=== PATIENT | female | born 1940 | race Caucasian/White ===

== ENCOUNTER → 2016-06-09 | Outpatient (REF) | LOC: ZLAB.WCH 10:39 | DX: Z01.89 Encounter for other specified special examinations (principal) ==

== ENCOUNTER → 2016-08-21 | Outpatient (CLI) | payer MEDICARE, BC | LOC: MC.RAD 08:16 | DX: Z12.31 Encounter for screening mammogram for malignant neoplasm of breast (principal); N64.89 Other specified disorders of breast ==

== ENCOUNTER → 2016-08-24 | Outpatient (CLI) | payer MEDICARE, BC | LOC: MC.RAD 10:11 | DX: Z12.39 Encounter for other screening for malignant neoplasm of breast (principal) ==

== ENCOUNTER → 2016-12-06 | Outpatient (REF) ==
[2016-12-06 10:44] LABS: TOTAL IRON BINDING CAPACITY 321 ug/dL (265-497)
[2016-12-06 11:11] LABS: FERRITIN 82 ng/mL (11-264)
== END ==
LOC: ZLAB.WCH 10:17
PROVIDERS: Internal Medicine
DX: Z02.89 Encounter for other administrative examinations (principal)

== ENCOUNTER → 2017-09-19 | Outpatient (CLI) | payer MEDICARE, BC | LOC: MC.RAD 07:14 | DX: Z12.31 Encounter for screening mammogram for malignant neoplasm of breast (principal) ==

== ENCOUNTER → 2017-12-25 | Outpatient (REF) ==
[2017-12-25 16:38] LABS: IRON,SERUM 98 ug/dL (35-150)
[2017-12-25 16:48] LABS: TOTAL IRON BINDING CAPACITY 305 ug/dL (265-497)
[2017-12-25 17:15] LABS: FERRITIN 93 ng/mL (11-264)
== END ==
LOC: ZLAB.WCH 15:49
PROVIDERS: Internal Medicine
DX: Z01.89 Encounter for other specified special examinations (principal)

== ENCOUNTER → 2018-09-26 | Outpatient (CLI) | payer MEDICARE, BC | LOC: MC.RAD 07:30 | DX: Z12.31 Encounter for screening mammogram for malignant neoplasm of breast (principal) ==

== ENCOUNTER → 2019-09-30 | Outpatient (CLI) | payer MEDICARE, BC | LOC: MC.RAD 16:23 | DX: Z12.31 Encounter for screening mammogram for malignant neoplasm of breast (principal) ==

== ENCOUNTER 2019-12-24 08:01 | Inpatient (IN) | payer MEDICARE, BC ==
[~2019-12-24] VITALS: Ht 162.6 cm; Wt 59.4 kg
[2019-12-24 09:15] LABS: HEMATOCRIT 40.4 % (37.0-47.0); HEMOGLOBIN 13.6 g/dl (12.5-16.0); MEAN CELL VOLUME 96 fl (80.0-100.0); MEAN CORPUSCULAR HEMOGLOBIN 32 pg (27.0-31.0); MEAN CORPUSCULAR HGB CONC 34 g/dl (33.0-37.0); MEAN PLATELET VOLUME 8.8 fl (7.4-10.4); PLATELET COUNT 131 K/mm3 (130-400); REDCELL DISTRIBUTION WIDTH-CV 11.8 % (11.5-14.5)
[2019-12-24 09:23] LABS: INR 1.1 (0.8-3.0); PROTHROMBIN TIME 12.1 SECONDS (9.7-12.8)
[2019-12-24 09:25] LABS: CREATININE, serum 0.8 (0.52-1.25); POTASSIUM 3.4 mmol/L (3.4-5.0)
[2019-12-24 09:52] VITALS: BP 133/88; PULSE 86; TEMP 98.2
[2019-12-24] MEDS ORDERED: LIPITOR 40MG TA40 MG PO (09:55)
[2019-12-24] MEDS ORDERED: MAXZIDE-25MG TA1 TAB PO (09:56)
[2019-12-24] MEDS ORDERED: ELIQUIS 5MG PO (09:57)
[2019-12-24] MEDS ORDERED: SYNTHROID0.112 MG/T PO (09:57)
[2019-12-24] MEDS ORDERED: LOPRESSOR 225 MG/TAB PO (09:58)
[2019-12-24] MEDS ORDERED: CENTRUM SILVER1 CTB PO (09:58)
[2019-12-24] MEDS ORDERED: CITRACAL + D CA1 TAB PO (09:59)
[2019-12-24] MEDS ORDERED: OMEGA-3 1000 MG1 CAP PO (09:59)
[2019-12-24] MEDS ORDERED: NATURAL FLAX1000 MG PO (10:00)
--- NOTE | 2019-12-24 10:15 | NUR ---
Pt to procedure.
[2019-12-24 10:23] VITALS: BP 134/77; PULSE 86
--- NOTE | 2019-12-24 10:25 | NUR ---
SEE MERGE FOR ALL MEDICATION ADMINISTRATION TIMES, INTRA AND POST SEDATION ASSESSMENTS
[2019-12-24 12:09] VITALS: BP 127/55; PULSE 91; TEMP 97.8
[2019-12-24 16:31] VITALS: BP 94/58; PULSE 67; TEMP 97.4
[2019-12-24 19:22] VITALS: BP 127/62; PULSE 75; TEMP 98
--- NOTE | 2019-12-24 20:30 | NUR ---
Patient resting in bed. Assessment complete. Lungs clear. Heart sounds normal. Bowels active x4. Pulses present throughout. No edema noted. INT left AC flushed without complications. Reports 2/10 shoulder and back pain. Applied lidocaine patch at this time. Will remove in medical aides teacher hours. Denies other needs at this time. Call light in reach.
--- NOTE | 2019-12-24 22:13 | NUR ---
Reports 5/10 back and left shoulder pain. Given PRN tylenol. INT left AC leaking. Dressing changed. Flushed well and blood returned. Denies other needs at this time. Call light in reach.
[2019-12-24 23:54] VITALS: BP 112/55; PULSE 62; TEMP 97.5
--- NOTE | 2019-12-25 00:33 | NUR ---
Resting in bed. Denies needs. Call light in reach.
--- NOTE | 2019-12-25 02:37 | NUR ---
Resting in bed. Denies needs. Call light in reach.
[2019-12-25 04:03] VITALS: BP 115/54; PULSE 70; TEMP 98.4
--- NOTE | 2019-12-25 06:01 | NUR ---
Patient required x1 dose of tylenol for pain control throughout night. Otherwise uneventful night. Resting in bed this AM. Call light in reach.
--- NOTE | 2019-12-25 06:48 | NUR ---
Report given to YESSICA Lafleur
[2019-12-25 07:12] LABS: BASO % 0.4 % (0.0-2.0); EOS # 0.1 (0.0-0.7); EOS % 2.4 % (0-4.0); GRAN # 3.4 (1.4-6.5); GRAN % 74.9 % (42.2-75.2); HEMATOCRIT 34.2 % (37.0-47.0); HEMOGLOBIN 11.8 g/dl (12.5-16.0); LYMPH # 0.7 (1.2-3.4); LYMPH % 15.7 % (20.0-51.0); MEAN CELL VOLUME 98 fl (80.0-100.0); MEAN CORPUSCULAR HEMOGLOBIN 34 pg (27.0-31.0); MEAN CORPUSCULAR HGB CONC 35 g/dl (33.0-37.0); MEAN PLATELET VOLUME 9.4 fl (7.4-10.4); MONO # 0.3 (0.1-0.6); MONO % 6.4 % (1.7-9.3); PLATELET COUNT 117 K/mm3 (130-400); REDCELL DISTRIBUTION WIDTH-CV 11.9 % (11.5-14.5)
[2019-12-25 07:26] LABS: CALCIUM 8.4 mg/dL (8.4-10.2); CREATININE, serum 0.71 (0.52-1.25); MAGNESIUM 1.8 mg/dL (1.6-2.3); POTASSIUM 3.3 mmol/L (3.4-5.0)
--- NOTE | 2019-12-25 08:16 | NUR ---
RECEIVED REPORT FROM JAMIE, PATIENT WAS UP TO RESTROOM AND THEN SITTING ON WINDOW BENCH. IS ALERT AND ORIENTED. SLING IS IN PLACE. DRESSING TO LEFT SHOULDER REMAINS CLEAN, DRY AND INTACT. CALL LIGHT IS WITHIN REACH.
[2019-12-25 08:33] VITALS: BP 125/72; PULSE 66; TEMP 98.3
[2019-12-25 12:51] VITALS: BP 134/74; PULSE 62; TEMP 97.7
--- NOTE | 2019-12-25 16:25 | NUR ---
Key Cutter met with the patient to complete initial intake. The patient lives in [place] with her , Kaden. The patient denies DME use and is independent with ADLs. The patient's PCP is Dr. Cross and patient receives medications from [facility] with no difficulties. The patient does not have advanced directives in the EMR but states they are complete and designate Kaden. The patient plans to return home at discharge. Kaden will provide transportation. There are no additional needs at this time.
[2019-12-25 17:40] VITALS: BP 132/68; PULSE 69; TEMP 98
--- NOTE | 2019-12-25 19:37 | NUR ---
RECEIVED TIME FOR PATIENTS CARDIOVERSION IN THE MORNING FROM [facility] IN HUMAN RESOURCE ADVISER. PATIENT IS TO GO FOR PROCEDURE AT 0730. SHE HAS BEEN INFORMED OF THIS AND CONSENT OBTAINED. PATIENT HAS ALSO BEEN NOTIFIED THAT SHE WILL BE NPO AFTER MIDNIGHT. SHE VERBALIZED UNDERSTANDING OF THE PROCEDURE SHE HAS HAD ONE LAST FALL.
--- NOTE | 2019-12-25 19:41 | NUR ---
REPORT GIVEN TO ONCOMING SHIFT.
[2019-12-25 19:46] VITALS: BP 131/65; PULSE 67; TEMP 98.2
--- NOTE | 2019-12-25 20:00 | NUR ---
Assessment complete at this time. Patient is independent in the room. She complains of pain, primarily in her sciatic area. 650 mg Tylenol administered for this. Left chest pacemaker insertion site's dressing is CDI with some bruising under the arm. Left arm sling is in place. Will continue to monitor.
[2019-12-25 23:36] VITALS: BP 135/57; PULSE 61; TEMP 97.7
[2019-12-26 03:08] VITALS: BP 138/60; PULSE 63; TEMP 97.8
[2019-12-26 07:28] LABS: BASO % 0.5 % (0.0-2.0); EOS # 0.1 (0.0-0.7); GRAN # 3.2 (1.4-6.5); GRAN % 73.5 % (42.2-75.2); HEMOGLOBIN 12.4 g/dl (12.5-16.0); LYMPH # 0.7 (1.2-3.4); LYMPH % 16.4 % (20.0-51.0); MEAN CELL VOLUME 96 fl (80.0-100.0); MEAN CORPUSCULAR HEMOGLOBIN 34 pg (27.0-31.0); MEAN CORPUSCULAR HGB CONC 35 g/dl (33.0-37.0); MEAN PLATELET VOLUME 10.1 fl (7.4-10.4); MONO # 0.3 (0.1-0.6); MONO % 6.4 % (1.7-9.3); PLATELET COUNT 101 K/mm3 (130-400); REDCELL DISTRIBUTION WIDTH-CV 11.7 % (11.5-14.5)
[2019-12-26 07:29] LABS: HEMATOCRIT 35.5 % (37.0-47.0)
[2019-12-26 07:50] LABS: CALCIUM 8.5 mg/dL (8.4-10.2); CREATININE, serum 0.59 (0.52-1.25); POTASSIUM 3.2 mmol/L (3.4-5.0)
[2019-12-26 07:51] VITALS: BP 142/62; PULSE 60; TEMP 97.7
--- NOTE | 2019-12-26 10:57 | NUR ---
Patient is alert and oriented. mild pain on pacemaker incision site, dressing clean, intact, no redness. patient have no concern or question at this time.
[2019-12-26] MEDS ORDERED: CEPHALEXIN500 M1 PO (11:59)
[2019-12-26] MEDS ORDERED: BETAPACE 80MG80 MG PO (11:59)
[2019-12-26 12:49] VITALS: BP 143/65; PULSE 60; TEMP 97.9
--- NOTE | 2019-12-26 13:33 | NUR ---
Primary nurse was assisted with [phone] [facility] ADN student Chyna Dailey.
--- NOTE | 2019-12-26 17:19 | NUR ---
Patient is alert and oriented. RN provided education on post pacemaker insertion site care and restriction. Followup appointment discussed with new medication Sotalol and Cephalexin. INT discontinued. patient discharge home with . No further question or concern from patient at this time.
== END 2019-12-26 14:15 | disposition home or self-care (01) | DRG 244 ==
LOC: COL.CAR → MEDICAL 12:02
PROVIDERS: ADMIT Internal Medicine Cardiovascular Disease
PROC: 0JH606Z Insertion of Pacemaker, Dual Chamber into Chest Subcutaneous Tissue and Fascia, Open Approach (ICD-10-PCS; principal; 2019-12-24)
PROC: 02HK3JZ Insertion of Pacemaker Lead into Right Ventricle, Percutaneous Approach (ICD-10-PCS; 2019-12-24)
PROC: 02H63JZ Insertion of Pacemaker Lead into Right Atrium, Percutaneous Approach (ICD-10-PCS; 2019-12-24)
DX: I49.5 Sick sinus syndrome (principal); I48.0 Paroxysmal atrial fibrillation; I48.91 Unspecified atrial fibrillation
CPT/HCPCS: C1785; C1894; C1898; J0690; J1200; J2250; J3010; J7030

== ENCOUNTER → 2020-02-05 | Outpatient (CLI) | payer MEDICARE, BC ==
--- NOTE | 2020-02-02 08:25 | NUR ---
ASKED TO BE HERE AT 0830. NO METAL ON HER PERSON. [place] ARE FINE. WILL BRING HER.
[~2020-02-05] MED LIST: BETAPACE 80MG80 MG PO; CENTRUM SILVER1 CTB PO; CEPHALEXIN500 M1 PO; CITRACAL + D CA1 TAB PO; ELIQUIS 5MG PO; LIPITOR 40MG TA40 MG PO; LOPRESSOR 225 MG/TAB PO; MAXZIDE-25MG TA1 TAB PO; NATURAL FLAX1000 MG PO; OMEGA-3 1000 MG1 CAP PO; SYNTHROID0.112 MG/T PO
== END ==
LOC: COL.RAD 01-28 09:45
DX: M46.1 Sacroiliitis, not elsewhere classified (principal); M47.816 Spondylosis without myelopathy or radiculopathy, lumbar region; M71.38 Other bursal cyst, other site; M48.061 Spinal stenosis, lumbar region without neurogenic claudication

== ENCOUNTER → 2020-08-11 | Outpatient (CLI) | payer MEDICARE, BC | LOC: COL.RAD 07:39 | DX: M48.061 Spinal stenosis, lumbar region without neurogenic claudication (principal); M51.36 Other intervertebral disc degeneration, lumbar region; M43.16 Spondylolisthesis, lumbar region; M47.816 Spondylosis without myelopathy or radiculopathy, lumbar region; M71.38 Other bursal cyst, other site; D75.89 Other specified diseases of blood and blood-forming organs ==

== ENCOUNTER → 2020-09-30 | Outpatient (CLI) | payer MEDICARE, BC | LOC: MC.RAD 09:04 | DX: Z12.31 Encounter for screening mammogram for malignant neoplasm of breast (principal) ==

== ENCOUNTER → 2021-01-17 | Outpatient (CLI) | payer MEDICARE, BC | LOC: COL.RAD 07:34 | DX: R42 Dizziness and giddiness (principal) | CPT/HCPCS: A9585 ==

== ENCOUNTER 2021-08-17 10:32 | Inpatient (IN) | payer MEDICARE, BC ==
[~2021-08-17] VITALS: Ht 157.5 cm; Wt 50.0 kg
[2021-08-17] MEDS ORDERED: TYLENOL 325MG325 MG PO (12:49)
[2021-08-17] MEDS ORDERED: CORDARONE200 MG/TAB PO (12:49)
[2021-08-17] MEDS ORDERED: ZEBETA 5MG5 MG PO (12:50)
[2021-08-17] MEDS ORDERED: DULCOLAX STOOL100 MG PO (12:51)
[2021-08-17] MEDS ORDERED: HALLS9.1 MG PO (13:03)
[2021-08-17] MEDS ORDERED: TIROSINT112 MC1 PO (13:04)
[2021-08-17] MEDS ORDERED: ROXICODONE 55 MG/TAB (13:05)
[2021-08-17] MEDS ORDERED: LIPITOR 40MG TA40 MG PO (14:58)
[2021-08-17] MEDS ORDERED: CALCIUM WITH VIT D (15:00)
[2021-08-17] MEDS ORDERED: VITAMIN D31000 I1 PO (15:01)
[2021-08-17] MEDS ORDERED: XARELTO20 MG PO (15:02)
[2021-08-17 15:22] VITALS: BP 128/85; PULSE 95; TEMP 98.2
--- NOTE | 2021-08-17 15:45 | NUR ---
Pt. arrived to IPR unit at approx 1530 via wheelchair. She was escorted by transportation staff member from [facility]. She is a/o x 4. She required assist x 1 person to transfer from wheelchair to bed. She denies pain or discomfort at this time. [place] collar is on. Admission assessments completed. Orientation provided to room, call light, meals, visiting policy. She had no further questions. Call light is within her reach
--- NOTE | 2021-08-17 17:17 | NUR ---
Pt reporting that dsg to neck incision has been changed for 3 days. [place] collar and gauze dressing removed with Dr. Diaz for skin assessment. Neck incision is approx 1 inch long. Steristrips intact to neck incision. 4x4 gauze placed over steristrips and then covered with hypofix tape.
[2021-08-17 17:30] VITALS: BP 165/81; PULSE 74; TEMP 98.7
--- NOTE | 2021-08-17 19:15 | NUR ---
RECEIVED CHANGE OF SHIFT REPORT FROM DAY SHIFT RN. PATIENT SITTING AT SIDE OF BED WITH EXIT ALARM ON AND CALL LIGHT WITHIN REACH. DENIES ANY NEEDS AT TIME OF REPORT.
[2021-08-18 05:18] VITALS: BP 137/70; PULSE 70; TEMP 98.4
--- NOTE | 2021-08-18 07:07 | NUR ---
Pt. resting supine in bed; watching television. [place] collar is on. She denies pain or discomfort. Call light is within her reach
--- NOTE | 2021-08-18 07:15 | NUR ---
CHANGE OF SHIFT REPORT GIVEN TO DAY SHIFT RNCAMPBELL.
--- NOTE | 2021-08-18 09:04 | NUR ---
Pt. currently up in w/c working with PT/OT. Therapist is wanting to clarify when pt. can shower. Sponge bath was given this morning. Called surgeon's office to clarify. Shan Joseph RN, okay to shower 7 days after surgery; replace pads of [place] Collar if they get wet
--- NOTE | 2021-08-18 11:51 | NUR ---
SW met with the patient to complete intake, as the patient is new to [facility]. The patient lives in [place] with her , Kaden (ph#[phone]). She reports needing some assistance with ADLs before hospitalization and has a cane and walker. She states that her was helping her with getting on the toliet and with bathing. She has never had home health services. The patient's PCP is Dr. Maximus Cross and she receives her medications from [facility]. She reports no difficulties obaining her meds. The patient does not have a DPOA-HC in EMR, but she states that she does have one completed and that she designated her . The patient states that therapy has been hard today, with it being her first day, but "no pain, no gain." SW to continue to follow.
--- NOTE | 2021-08-18 13:33 | NUR ---
Several visit attempts; Physical Therapist present, Supervisor Finishing Room left patient a card letting her know of the availability of Spiritual Care and offered her God's blessings.
--- NOTE | 2021-08-18 15:35 | NUR ---
Pt. resting in bed, HOB elevated approx 30 degrees. and friend are at bedside to visit. Pt. reports pain at 05/02. Denies further needs at this time. Call light is within her reach
[2021-08-18 17:19] VITALS: BP 156/77; PULSE 73; TEMP 98.5
--- NOTE | 2021-08-18 21:00 | NUR ---
PT RESTING IN BED. NO DISTRESS. ASPEN COLLAR IN PLACE. MOD 1 ASSIST TO BSC TO VOID. LEGS WEAK AND EASILY GIVE OUT. BACK TO BED. DENIES NEED FOR PAIN MED. CALL LIGHT IN REACH. BED ALARM SET.
[2021-08-19 05:31] VITALS: BP 174/72; PULSE 70; TEMP 98.9
--- NOTE | 2021-08-19 06:24 | NUR ---
PT HAS SLEPT WELL THIS NIGHT. NO CHANGES.
--- NOTE | 2021-08-19 09:30 | NUR ---
Pt doing well this morning. She was nervous about taking a shower, discussed procedure and pt appeared to be more calm about it. Now that pt has showered, she stated it wasn't too bad. Pt denies any needs
--- NOTE | 2021-08-19 12:48 | NUR ---
Pt continues to do well with little to no pain. Drsg to neck was changed. There were steristrips intact with dried blood to them, no active drainage or bleeding noted. New gauze and tape applied. Pt tolerated with no complaints. Pt resting a little prior to next therapy session.
[2021-08-19 17:18] VITALS: BP 126/89; PULSE 70; TEMP 98.6
[2021-08-20 05:34] VITALS: BP 139/72; PULSE 71; TEMP 98.2
--- NOTE | 2021-08-20 08:00 | NUR ---
Assessment complete. A&Ox3. Denies nausea/shortness of breath. VS remain stable. Rating pain 4/10 to neck-described as intermittent throbbing-tylenol given per dr graham. [place] collar on. Dressing to neck CDI gauze. Plan of care discussed for this shift to include meds/collar at all times/therapy/calling for questions/concerns. Verbalizes understanding/denies needs. Call light in reach. will monitor.
--- NOTE | 2021-08-20 11:57 | NUR ---
Assisted to bathroom-1 assist/walker/gait belt. Tolerated well. Voided without difficulty.
--- NOTE | 2021-08-20 16:18 | NUR ---
Pt up to bathroom at this time x1 assist/gait belt/walker. Very unsteady-legs gave out on way to toilet. Patient did not fall but buckled at the knees.
[2021-08-20 17:38] VITALS: BP 153/79; PULSE 72; TEMP 98.5
--- NOTE | 2021-08-20 18:03 | NUR ---
Patient had an uneventful day. Did state she feels worn out from therapy and is currently unsteady on her feet-knees buckle with ambulation. Received only tylenol for pain. Denied nausea/shortness of breath. VS remained stable. Denies current needs. Call light in reach. Will monitor.
--- NOTE | 2021-08-20 18:23 | NUR ---
Report to YESSICA Mansfield
--- NOTE | 2021-08-20 19:33 | NUR ---
PT RESTING IN BED. WATCHING TV. REPOSITIONED FOR COMFORT. ASPEN COLLAR IN PLACE. NO NEEDS ST THIS TIME. CALL LIGHT IN REACH. BED ALARM SET.
[2021-08-21 05:33] VITALS: BP 153/68; PULSE 82; TEMP 98.6
--- NOTE | 2021-08-21 07:00 | NUR ---
assisted up to bathroom by CHIEF WARDEN, CHIEF WARDEN states when returning from bathroom her patient's legs became very weak and she started to bend her knees but CHIEF WARDEN was able to keep her up and patient was able to continue to ambulate to the bed, patient states her legs just get very weak and feel like rubber,
--- NOTE | 2021-08-21 07:40 | NUR ---
sitting up in bed and has had breakfast, full assessment completed, see interventions for further info, states she has not had a bowel movement for a couple of days, offered miralax but is afraid to take it as it worked too well, will consider it and let this nurse know if she wants to take it
--- NOTE | 2021-08-21 09:40 | NUR ---
called requesting to get up to bathroom, as she was being assited up to bedside commode had large loose incontinent bowel movement, care provided and then assisted back to bed,
--- NOTE | 2021-08-21 12:30 | NUR ---
having lunch, in to visit
--- NOTE | 2021-08-21 13:03 | NUR ---
assisted up to bedside commode, had asked to take a walk but had difficulty standing from commode with assistance, will wait and attempt a walk later, assited back to bed per her request
--- NOTE | 2021-08-21 14:10 | NUR ---
resting in bed with TV on
--- NOTE | 2021-08-21 15:52 | NUR ---
assisted up to bedside commode, then was able to ambulate approx 25 feet, then sat and rested and then ambulated another 25 feet back to her room and will sit up in WC for a while
[2021-08-21 17:59] VITALS: BP 174/80; PULSE 73; TEMP 98.6
--- NOTE | 2021-08-21 18:45 | NUR ---
shift report given to YESSICA Mansfield
--- NOTE | 2021-08-21 20:33 | NUR ---
CHANGED NECK DRSG. NO DRAINAGE OR REDNESS NOTED. ASPEN COLLAR BACK ON.
--- NOTE | 2021-08-21 21:00 | NUR ---
ASSISTED PT TO BSC. LEGS ARE VERY WEAK. NEEDED MAX ASSIST TO TRANSFER AND HYGIENE. BACK TO BED. ASPEN COLLAR IN PLACE.
--- NOTE | 2021-08-22 02:18 | NUR ---
1 MOD ASSIST TO BSC. LEGS WEAK. VOIDED. 2:1 BACK TO BED. CALL LIGHT IN REACH. BED ALARM SET.
[2021-08-22 05:38] VITALS: BP 148/75; PULSE 76; TEMP 98.5
--- NOTE | 2021-08-22 08:01 | NUR ---
Shift report received from machinist 2nd shift RN. Pt. sitting up in bed. She denies pain or discomfort. She reports not sleeping well during the night. She denies further needs at this time. Call light is within her reach
[2021-08-22 11:18] LABS: HEMATOCRIT 40.7 % (37.0-47.0); HEMOGLOBIN 13.5 g/dl (12.5-16.0); MEAN CELL VOLUME 82 fl (80.0-100.0); MEAN CORPUSCULAR HEMOGLOBIN 27 pg (27-31); MEAN CORPUSCULAR HGB CONC 33 g/dl (33.0-37.0); MEAN PLATELET VOLUME 8.6 fl (7.4-10.4); PLATELET COUNT 392 K/mm3 (130-400); RED BLOOD COUNT 4.96 M/mm3 (4.10-5.30); REDCELL DISTRIBUTION WIDTH-CV 14.6 % (11.5-14.5)
[2021-08-22 11:26] LABS: CALCIUM 8.9 mg/dL (8.4-10.2); CREATININE, serum 0.79 mg/dL (0.57-1.11); POTASSIUM 4.2 mmol/L (3.5-4.5)
[2021-08-22 12:08] LABS: BAND 5 % (0-10); LYMPHOCYTE 3 % (20.0-51.0); NEUTROPHILS 88 % (42.0-75.2)
[2021-08-22 12:09] LABS: PLATELET ESTIMATE NORMAL (NORMAL); TOXIC GRANULATION PRESENT
--- NOTE | 2021-08-22 14:27 | NUR ---
TRINI met with the patient to follow up after the weekend. The patient was lying down, watching a baseball game. The patient states that the weekend went alright and she is doing well, just trying to get some rest. She had no concerns for SW.
--- NOTE | 2021-08-22 17:25 | NUR ---
Pt. assisted to bathroom using wheelchair, gait belt, and 2 person assist. Red area noted to sacral area. Area is approx 4cm long and does not nia. Not tender or painful per patient. Allevyn foam dressing placed for pressure relief. Skin is intact at this time
[2021-08-22 17:43] VITALS: BP 129/54; PULSE 74; TEMP 98.4
--- NOTE | 2021-08-22 19:58 | NUR ---
RECEIVED CHANGE OF SHIFT REPORT FROM DAY SHIFT RN. BED EXIT ALARM ON WITH CALL LIGHT WITHIN REACH.
[2021-08-23 05:38] VITALS: BP 116/67; PULSE 83; TEMP 98.9
--- NOTE | 2021-08-23 06:55 | NUR ---
CHANGE OF SHIFT REPORT GIVEN TO DAY SHIFT RNCAMPBELL.
--- NOTE | 2021-08-23 07:06 | NUR ---
Pt. resting supine in bed. HOB elevated approx 30 degrees. [place] collar on as ordered. Shift report received from maintenance technician 3rd shift RN. Call light is within her reach
--- NOTE | 2021-08-23 12:15 | NUR ---
Nurse to administer IV Rocephin. After flushing IV site right wrist with 5mL, site noted to be infiltrated. IV removed. New IV site established in left ac by charge nurse. 22g placed without difficulty and flushes well
--- NOTE | 2021-08-23 15:02 | NUR ---
Dressing change completed to anterior neck incision. Dry drainage noted on intact steristrips. No active drainage. Dry 2x2 gauze placed over steristrips and secured with hypofix tape. [place] collar secured around pt's neck. She denies pain or discomfort. Denies further needs. Call light is within her reach
--- NOTE | 2021-08-23 15:26 | NUR ---
Admission QIM scores were reviewed by the team. Code of 1 chosen for toilet hygiene was determined by team discussion to be the most usual performance for this patient during the assessment period. Code of 1 chosen for toileting transfers was determined by team discussion to be the most usual performance for this patient during the assessment period. Code of 2 chosen for lower body dressing was determined by team discussion to be the most usual performance for this patient during the assessment period. Code of 2 chosen for putting on/taking off footwear was determined by team discussion to be the most usual performance for this patient during the assessment period. Code of 3 chosen for sit to lying was determined by team discussion to be the most usual performance before interventions for this patient during the assessment period. Code of 3 for sit to stand was determined by team discussion to be the most usual performance for this patient during the assessment period. Code of 2 for chair/bed to chair transfers was determined by team discussion to be the most usual performance for this patient during the assessment period. Code of 88 chosen for walk 10 feet was determined by team discussion to be the most usual performance for this patient during the assessment period.--Alva Genao,
[2021-08-23 17:16] VITALS: BP 121/65; PULSE 77; TEMP 99.7
--- NOTE | 2021-08-23 19:15 | NUR ---
Skin check for skin to sacral area. Yesterday skin was noted to be red and non-blanchable. Allevyn dressing was applied for pressure relief. Sacral area is no longer red. Allevyn dressing reapplied for protection/pressure relief
--- NOTE | 2021-08-23 19:36 | NUR ---
RECEIVED CHANGE OF SHIFT REPORT FROM DAY SHIFT RN. PATIENT UP IN CHAIR DURING REPORT, REQUESTED TO HAVE SELF CHANGE INTO PAJAMAS, AND PUT BACK TO BED. REQUIRED MAX ASSIST X2, BLE VERY WEAK, NEEDING TO SIT DOWN FEW TIMES DURING ACTIVITY OF DRESSING AND TRANFERRING TO BED FROM CHAIR DUE TO BLE WEAKNESS. PATIENT WITH SOME SOA DURING ACTIVITY. WHEN IN BED, EXIT ALARM ON, CALL LIGHT WITHIN REACH. DENIES ANY OTHER NEEDS.
[2021-08-23 20:48] VITALS: BP 147/95; PULSE 88
[2021-08-23 21:15] VITALS: BP 104/55
--- NOTE | 2021-08-23 21:32 | NUR ---
AFTER TAKING HS MED, CALCIUM TAB (CUT IN HALF), PATIENT STARTED COUGHING PERSISTANTLY WITH DRY HEAVING. VS TAKEN, WITH OBSERVED OX SAT DOWN TO 88% ON ROOM AIR, OXYGEN APPLIED, CALLED HOSP PROVIDER REGARDING SITUATION, ORDERS GIVEN FOR X1 RT TREATMENT (RT CALLED), OXYGEN RUNNING INITIALLY AT 2 LPM BUT NOW SET AT 3 LPM DUE TO CONTINUED COUGHING AT THIS TIME. OBSERVED SPUTUM MOSTLY FROTHY WHITE NOW BUT AT ONE POINT WAS LIGHT SEGURA WITH X1 SMALL WHITE ORTIZ. PATIENT REPORTS SHE CAN FEEL TAB STUCK IN BACK OF THROAT.
--- NOTE | 2021-08-23 21:50 | NUR ---
OBSERVED OXYGEN SET AT 5 LPM AT THIS TIME. PATIENT RESTING QUIETLY IN BED IN HIGH FOWLERS POSITION RECOMMENDED BY RT AND PROVIDER. TOLERATED X3 SPRAYS OF PRN THROAT SPRAY.
--- NOTE | 2021-08-24 02:06 | NUR ---
PATIENT UP TO BSC, MAX ASST X2, FREQUENT VERBAL CUES TO LIFT BLE DURING TRANFER FROM BSC TO BED, GAIT NOTICABLE WEAK TRANSFER. PATIENT COUGHING INFREQUENTLY WHEN EYES CLOSED/RESTING, WITH COUGHING SLIGHT INCREASED WHEN AWAKE AND MOVING AND TALKING. COUGH NONPRODUCTIVE AND NO RETCHING OBSERVED. OXYGEN CONTINUES. AGREED TO 1 SPRAY OF THROAT SPRAY. NO OTHER NEEDS REPORTED.
[2021-08-24 03:33] VITALS: BP 102/44; PULSE 76; TEMP 99.6
[2021-08-24 06:10] LABS: MEAN CELL VOLUME 81 fl (80.0-100.0); MEAN CORPUSCULAR HGB CONC 33 g/dl (33.0-37.0); PLATELET COUNT 323 K/mm3 (130-400); RED BLOOD COUNT 4.11 M/mm3 (4.10-5.30); REDCELL DISTRIBUTION WIDTH-CV 14.6 % (11.5-14.5)
[2021-08-24 06:12] LABS: HEMATOCRIT 33.3 % (37.0-47.0); HEMOGLOBIN 11.1 g/dl (12.5-16.0); MEAN CORPUSCULAR HEMOGLOBIN 27 pg (27-31)
[2021-08-24 06:38] LABS: CREATININE, serum 0.81 mg/dL (0.57-1.11); POTASSIUM 4.1 mmol/L (3.5-4.5)
[2021-08-24 06:57] LABS: BAND 5 % (0-10); EOSINOPHIL 2 % (0-4); LYMPHOCYTE 5 % (20.0-51.0); MYELOCYTE 1 % (0-0); NEUTROPHILS 87 % (42.0-75.2); PLATELET ESTIMATE NORMAL (NORMAL)
--- NOTE | 2021-08-24 07:13 | NUR ---
CHANGE OF SHIFT REPORT GIVEN TO DAY SHIFT RNABE.
--- NOTE | 2021-08-24 10:25 | NUR ---
Assessment completed, alert/oriented, vital signs stable, reports some body aches from coughing overnight s/p episode of choking/aspirating on a medication, follow up CXR did not show signs of significant aspiration, she was originally on some supplemental O2 but we have weened her off and sats are WNL on room air, ST ordered for swallow eval, we crushed morning meds and she seems to have tolerated well without signs of aspiration, discussed plan of care with , patient is still very weak in her BLE, [place] collar in place at all times, dressing to neck incision due to be changed on 08/26/21, patient denies other needs at this time
--- NOTE | 2021-08-24 14:02 | NUR ---
TRINI met with the patient's , Kaden, to present and review the IPR Team Conference Note. The team plans to re-evaluate the patient next Sunday. There is no discharge date set at this time. Kaden was in agreement to the plan. SW to continue to follow.
[2021-08-24 16:56] VITALS: BP 111/58; PULSE 72; TEMP 98.4
--- NOTE | 2021-08-24 20:21 | NUR ---
PT HAS IMPULSIVELY GOTTEN OUT OF RECLINER SEVERAL TIMES. CHAIR ALARM SOUNDING. PT AMBULATED TO SURGICAL NURSES DESK ANS ESCORTED BACK TO ROOM. PT RELATES IS PICKING HIM UP AND THE ENTRANCE. REVIEWED PLAN OF CARE. PT ABLE TO IDENTIFY HE IS AT [facility].
--- NOTE | 2021-08-24 20:30 | NUR ---
PT SITTING UP IN BED. TAKES 1 PILL CRUSHED WITH PUDDING AND WAS ABLE TO TAKE THE OTHERS WELL WITH H20. ASPEN COLLAR IN PLACE. DRSG TO NECK CDI. CALL LIGHT IN REACH. BED ALARM SET. NO NEEDS AT THIS TIME.
--- NOTE | 2021-08-25 02:12 | NUR ---
PT RESTING WELL. NO RESP DISTRESS. HAS OCCASIONAL NONPRODUCTIVE COUGH.
[2021-08-25 06:06] VITALS: BP 137/68; PULSE 85; TEMP 98.7
--- NOTE | 2021-08-25 06:14 | NUR ---
PT HAD UNEVENTFUL NIGHT.
--- NOTE | 2021-08-25 10:50 | NUR ---
DRESSING TO PT'S NECK CHANGED AFTER PT HAS SHOWER WITH OCCUPATIONAL THERAPY. STERI STRIPS INTACT TO INCISION. GAUZE ET HYPAFIX TAPLE APPLIED. MEPILEX DRESSING ON PT'S COCCYX ALSO CHANGED, SKIN IS NORMAL ET INTACT.
[2021-08-25 17:57] VITALS: BP 128/81; PULSE 73; TEMP 97.9
--- NOTE | 2021-08-25 17:58 | NUR ---
PT SITTING UP IN RECLINER CHAIR. PT'S IN VISITING WITH HER. PT HAS WORKED WITH THERAPY TODAY, BEEN UP TO THE BR WITH 2 ASSIST, WALKER ET A GAIT BELT SEVERAL TIMES TO URINATE. ASPEN COLLAR ET GAUZE DRESSING IN PLACE TO PT'S NECK. PT HAS DENIED NEED FOR PAIN MEDICATION WHEN OFFERED, STATES THAT BACK PAIN IS MILD.
--- NOTE | 2021-08-25 19:40 | NUR ---
PT RESTING IN BED. PT C/O SACRAL DISCOMFORT FROM DITTING IN RECLINER. REDNESS NOTED TO SACRAL AREA APPROX 3CM AREA. PLACED MEPILEX TO THIS ARE. ALREADY HAS MEPILEX TO UPPER COCCYX INTACT. HERE. VERY SUPPORTIVE. CALL LIGHT IN REACH. BED ALARM SET.
--- NOTE | 2021-08-25 19:45 | NUR ---
PT RELATES SHE STILL OCCASIONAL NONPRODUCTIVE COUGH. NO RESP DISTRESS NOTED.
[2021-08-26 05:37] VITALS: BP 137/97; PULSE 70; TEMP 97.7
[2021-08-26 05:59] LABS: BASO # 0.1 K/mm3 (0.0-0.2); BASO % 0.6 % (0.0-2.0); EOS # 0.3 K/mm3 (0.0-0.7); EOS % 2.4 % (0.0-4.0); GRAN # 8.7 K/mm3 (1.4-6.5); GRAN % 84.7 % (42.2-75.2); HEMOGLOBIN 10.7 g/dl (12.5-16.0); LYMPH # 0.7 K/mm3 (1.2-3.4); LYMPH % 6.5 % (20.0-51.0); MEAN CELL VOLUME 81 fl (80.0-100.0); MEAN CORPUSCULAR HEMOGLOBIN 27 pg (27-31); MEAN CORPUSCULAR HGB CONC 33 g/dl (33.0-37.0); MEAN PLATELET VOLUME 8.3 fl (7.4-10.4); MONO # 0.5 K/mm3 (0.1-0.6); MONO % 5.1 % (1.7-9.3); PLATELET COUNT 343 K/mm3 (130-400); RED BLOOD COUNT 3.98 M/mm3 (4.10-5.30); REDCELL DISTRIBUTION WIDTH-CV 14.6 % (11.5-14.5)
[2021-08-26 06:00] LABS: HEMATOCRIT 32.2 % (37.0-47.0)
--- NOTE | 2021-08-26 06:07 | NUR ---
PT INT NEEDLE LEAKING. WILL NOT FLUSH. DC'D AT THIS TIME.
[2021-08-26 06:28] LABS: CALCIUM 7.8 mg/dL (8.4-10.2); CREATININE, serum 0.68 mg/dL (0.57-1.11); POTASSIUM 3.8 mmol/L (3.5-4.5)
--- NOTE | 2021-08-26 08:00 | NUR ---
Patient laying in bed resting, easily awakened with verbal command. A&Ox4. VSS. Cervical collar on neck. Denies pain and discomfort. No IV access. Independent with feeds and repositioning in bed. Call light within reach. Bed alarm on
--- NOTE | 2021-08-26 10:53 | NUR ---
TRINI met with the patient to follow up before the weekend. The patient states that she is doing alright. She states that therapy this morning has gone okay. She states that her legs are wobbly. She had no concerns for SW at this time.
--- NOTE | 2021-08-26 17:12 | NUR ---
Nurse assisted the patient with walker and gait belt to the bathroom and then to the recliner. at the bedside. Patient A&Ox4. VSS. IV CDI. Denies pain and discomfort. Cervical collar on and tolerating well. Call light within reach
[2021-08-26 17:22] VITALS: BP 144/77; PULSE 79; TEMP 98.6
--- NOTE | 2021-08-27 06:01 | NUR ---
no pain reported tonight, however, had quite a bit of weakness in BLE, able to ambulate to restroom with assist x1 using GB and walker prior to bed time, but had to transfer back to bed with WC after difficulty standing up from toilet, used BSC rest of the noc, without difficulty. colace given @HS for no stool since 08/22
[2021-08-27 06:07] VITALS: BP 140/71; PULSE 70; TEMP 98
--- NOTE | 2021-08-27 07:00 | NUR ---
Shift report received from shift nurse manager RN. Pt. resting in bed. HOB elevated approx 30 degrees. Call light is within her reach
--- NOTE | 2021-08-27 11:52 | NUR ---
Dressing change completed to anterior neck incision. Steristrips to incision are CDI. Dried drainage noted on steristrips, no active drainage. 2x2 and hypofix tape applied over steristrips. Pt. continues to wear the [place] collar. is in the room. They deny further needs at this time. Call light is within her reach
--- NOTE | 2021-08-27 15:00 | NUR ---
Pt. requesting to "get up and walk a few steps". Pt. ambulated approx 20 feet using gait belt and fww. Nurse provided CGA while HOMELAND SECURITY PROGRAM SPECIALIST followed closely with wheelchair. Pt. assisted to recliner chair at her request. Pressure relief cushions placed in recliner chair for comfort. Pt. stated that recliner is "really hard". She denies pain or discomfort at this time. Call light is within her reach
[2021-08-27 17:13] VITALS: BP 114/68; PULSE 71; TEMP 97.6
--- NOTE | 2021-08-27 18:17 | NUR ---
Pt. sitting in recliner on egg-crate cushion. Pt. c/o soreness to sacral area. Allevyn dsg. intact but removed by this insurance writer to inspect skin below the dressings. Redness noticed between upper buttocks. Skin is intact. Blanches. New Allevyn dressing replaced over sacral area. Pt. cushion replaced with pillow for now as pt. would like to like to wait for her to arrive. Pt. will call if discomfort returns. Call light is within her reach
[2021-08-28 05:23] VITALS: BP 148/84; PULSE 83; TEMP 97.2
--- NOTE | 2021-08-28 06:59 | NUR ---
Shift report given from shift boss RN. Pt. resting in bed. [place] collar on. Call light is within her reach
--- NOTE | 2021-08-28 09:54 | NUR ---
Pt. assisted back to bed using min A, gait belt, fww after sitting in recliner for breakfast. She denies pain or discomfort. Denies further needs at this time. Call light is within her reach
--- NOTE | 2021-08-28 11:23 | NUR ---
Pt. assisted to bathroom using gait belt & fww. CGA provided by nurse & COMMUNICATION CONSULTANT. Pt. ambulated approx 30ft after toileting. Pt. now sitting up in recliner. [place] collar is on. Allevyn dsg to coccyx is CDI. She denies pain but reports minimal discomfort to coccyx today. She denies further needs at this time. Call light is within her reach
[2021-08-28 17:15] VITALS: BP 121/76; PULSE 79; TEMP 97.7
--- NOTE | 2021-08-28 18:21 | NUR ---
Pt. assisted to wheelchair then to toilet; required assist x 1 with gait belt. Pt. feels like her feet are numb. CMS WNL both feet. No edema. Pulses 2+ bilaterally.
--- NOTE | 2021-08-28 19:41 | NUR ---
RECEIVED CHANGE OF SHIFT REPORT FROM DAY SHIFT RN. UP IN CHAIR WITH EXIT ALARM ON AND CALL LIGHT WITHIN REACH.
--- NOTE | 2021-08-29 05:44 | NUR ---
OBSERVED PATIENT NEEDING FREQUENT REMINDER WITH PIVOT TRANSFERS REGARDING POSTURE AND USE OF WALKER. REMINDED PATIENT TO NOT LEAN BACKWARDS WHEN USING WALKER DURING PIVOT TRANSFERS. PATIENT VERBALIZED UNDERSTANDING.
[2021-08-29 05:51] VITALS: BP 148/66; PULSE 70; TEMP 97.6
--- NOTE | 2021-08-29 07:02 | NUR ---
CHANGE OF SHIFT REPORT GIVEN TO DAY SHIFT RNANASTACIA.
--- NOTE | 2021-08-29 08:31 | NUR ---
AM MEDS GIVEN ORDERED. PT ATE 100% OF BREAKFAST. UP TO BR VOIDED AND RETURNED TO RECLINER. PT WORKING WITH OT AT THIS TIME. PT AMBULATES WITH SLOW STEADY GAIT.
--- NOTE | 2021-08-29 09:22 | NUR ---
DRESSING CHANGE COMPLETE, REPLACED GAUZE AND [place]IPORE TAPE OVER INCISION.
--- NOTE | 2021-08-29 16:09 | NUR ---
nuclear plant construction worker checked in with patient. Patients Kaden present at bedside. Introduced myself. No concerns or needs addressed at this time.
[2021-08-29 17:30] VITALS: BP 125/74; PULSE 76; TEMP 97.2
--- NOTE | 2021-08-29 19:07 | NUR ---
RECEIVED CHANGE OF SHIFT REPORT FROM DAY SHIFT RN.
--- NOTE | 2021-08-29 19:19 | NUR ---
PATIENT UP IN CHAIR, EXIT ALARM ON, CALL LIGHT WITHIN REACH. DENIES ANY NEEDS AT THIS TIME.
[2021-08-30 06:06] VITALS: BP 112/62; PULSE 77; TEMP 97.3
--- NOTE | 2021-08-30 06:20 | NUR ---
DURING TRANSFER WITH GAIT BELT ON/PATIENT USING [facility] FROM [facility] BACK TO BED, PATIENT'S RIGHT KNEE "GAVE OUT" OBSERVING SOME TWITCHING MOVEMENT OF BOTH LEGS, R>L, CAREFULLY/GENTLY ASSISTING PATIENT TO KNEELING POSITION ONTO FLOOR. PATIENT DENIED PAIN/INJURING WHEN ADDITIONAL ASSISTANCE, X1 STAFF SHIPPING ASSOCIATE, ARRIVED TO HAVE PATIENT REPOSITIONED INTO STANDING AND ABLE TO PLACE PATIENT BACK IN BED. INFORMED OIL LABORATORY ANALYST AND CHARGE NURSE OF INCIDENT.
[2021-08-30 06:57] LABS: BASO # 0.1 K/mm3 (0.0-0.2); EOS # 0.3 K/mm3 (0.0-0.7); EOS % 3.6 % (0.0-4.0); GRAN # 5.7 K/mm3 (1.4-6.5); GRAN % 78.8 % (42.2-75.2); HEMOGLOBIN 11.4 g/dl (12.5-16.0); LYMPH # 0.8 K/mm3 (1.2-3.4); LYMPH % 11.2 % (20.0-51.0); MEAN CELL VOLUME 80 fl (80.0-100.0); MEAN CORPUSCULAR HEMOGLOBIN 27 pg (27-31); MEAN CORPUSCULAR HGB CONC 34 g/dl (33.0-37.0); MEAN PLATELET VOLUME 8.5 fl (7.4-10.4); MONO # 0.3 K/mm3 (0.1-0.6); MONO % 4.3 % (1.7-9.3); PLATELET COUNT 347 K/mm3 (130-400); RED BLOOD COUNT 4.26 M/mm3 (4.10-5.30); REDCELL DISTRIBUTION WIDTH-CV 14.8 % (11.5-14.5)
[2021-08-30 07:08] LABS: CALCIUM 8.3 mg/dL (8.4-10.2); CREATININE, serum 0.72 mg/dL (0.57-1.11); POTASSIUM 4.1 mmol/L (3.5-4.5)
--- NOTE | 2021-08-30 07:26 | NUR ---
CHANGE OF SHIFT REPORT GIVEN TO DAY SHIFT RNIBETH.
--- NOTE | 2021-08-30 08:15 | NUR ---
PT LAYING SUPINE IN BED EATING BREAKFAST. PT STATES THAT SHE NEEDS TO USE RESTROOM. PT WAS ASSISTED TO BATHROOM VIA WHEELCHAIR. PT WAS ABLE TO VOID IN BEDSIDE POTTY. PT THEN UP TO SINK IN WHEELCHAIR TO BRUSH TEETH. PT STATES NO PAIN OR DISCOMFORT THIS AM. PT STATES THAT SHE WILL JUST STAY UP IN THE WHEELCHAIR TO WORK WITH ST. PT ON ROOM AIR AND NECK BRACE ON. CALL LIGHT IS WITHIN REACH.
--- NOTE | 2021-08-30 10:13 | NUR ---
PT OFF FLOOR FOR GROUP THERAPY
--- NOTE | 2021-08-30 11:22 | NUR ---
PT RETURNED TO FLOOR FROM THERAPY.
--- NOTE | 2021-08-30 14:06 | NUR ---
SW left message for the patients Kaden to notify him of team meeting tomorrow morning and to see if 1000 am would work for him. Message left. Visited patient in her room. She states that Kaden should be back in about an hour. Notified her of plan as well.
[2021-08-30 17:30] VITALS: BP 122/66; PULSE 83; TEMP 97.8
--- NOTE | 2021-08-30 18:42 | NUR ---
ASSISTED PT FROM BED TO WHEELCHAIR AND THEN WHEELCHAIR TO BEDSIDE TOLIET TO VOID. AND THEN PT WANTED TO SIT UP IN WHEELCHAIR AND BRUSH TEETH AND PERFORM HYGEINE. PT STATES NO PAIN OR OTHER NEEDS AT THIS TIME. CALL LIGHT WAS LAID OUT FOR PT TO PUSH WHEN SHE WAS DONE.
--- NOTE | 2021-08-30 23:59 | NUR ---
Pt has been pleasant throughout the shift thus far. This nurse and a PCT assisted the pt to the commode where she had a BM. Pt was weak and gait was unsteady, pt expressed frustration at being "useless". Pt to bed and resting comfortably, denies having any pain. Call light within reach.
[2021-08-31 05:52] VITALS: BP 124/66; PULSE 74; TEMP 98
--- NOTE | 2021-08-31 08:05 | NUR ---
PT LAYING SUPINE IN BED ON ROOM AIR. PT STATES THAT SHE WOULD LIKE TO GET UP AND GO TO THE BATHROOM AND GET DRESSED BUT SHE WILL WAIT FOR THERAPY TO COME HELP HER. PT STATES NO PAIN OR NEEDS AT THIS TIME. CALL LIGHT IS WITHIN REACH. THERAPY AT BEDSIDE TO WORK WITH PT.
--- NOTE | 2021-08-31 12:58 | NUR ---
Initial visit; Patient welcomed Lead Cargoman and said she was doing "ok" but was a little down today due to instability in her legs which is of concern to her. She was assured by Physical Therapy that she was doing well and it will just take time. Lead Cargoman will follow up and hopefully be able to make her smile like she did when they visited today. Lead Cargoman also offered God's blessings.
--- NOTE | 2021-08-31 15:08 | NUR ---
Family meeting held this morning with patient and her Kaden. Also present is: MD,PT,OT,ST and IPR director. MD discusses patients poc and that he was waiting to hear from [facility]. At this time poc is unknown. Informed the patient that at this moment she will still be working with therapy. Patient presented with team conference notes and they were reviewed. At this time the patient has no concerns.
[2021-08-31 16:52] VITALS: BP 126/66; PULSE 82; TEMP 98.2
--- NOTE | 2021-08-31 19:27 | NUR ---
PT STATES THAT SHE WOULD LIKE TO GET INTO CHAIR. ASSITED OT TO GET INTO CHAIR. A FEW MINTUES LATER PT CALLED AND STATES THAT SHE IS UNCOMFORTABLE AND NEEDS TO TURN. TRIED TO REPOSITIONED AND PUT ANOTHER PILLOW UNDER HER AND SHE STILL COMPLAINED IT WAS UNCOMFORTABLE. PT STATES THAT SHE WOULD JUST LIKE TO GET INTO BED. ASSISTED PT TO GET INTO BED. PT IS UNABLE TO BEAR WEIGHT AND STAND UP ON OWN ALL. PT STATES NO OTHER NEEDS AT THIS TIME. CALL LIGHT IS WITHIN REACH.
--- NOTE | 2021-08-31 21:00 | NUR ---
PM ASSESSMENT COMPLETE. PT SITTING UP IN BED. DENIES PAIN. ASSISTED TO BSC USING WALKER AND SECOND PERSON. GAIT WEAK, BUT PT WAS ABLE TO STAND AND SHUFFLE FEET TO BSC. CHANGED INTO PAJAMA BOTTOMS AND ASSITED BACK TO BED. C-COLLAR IN PLACE, PT STATES NO COMPLAINTS, COLLAR NOT RUBBING OR UNCOMFORTABLE. PT STATES READY TO GO TO SLEEP. BED ALARM ON, CALL LIGHT WITH PT. WILL CONTINUE TO MONITOR.
[2021-09-01 05:34] VITALS: BP 133/60; PULSE 71; TEMP 98.6
--- NOTE | 2021-09-01 06:55 | NUR ---
shift report received from YESSICA Bazzi
--- NOTE | 2021-09-01 07:45 | NUR ---
sitting up in bed and has had breakfast, full assessment completed, see interventions for further info, denies needs at this time
--- NOTE | 2021-09-01 08:44 | NUR ---
occupational therapy in to work with patient
--- NOTE | 2021-09-01 10:26 | NUR ---
out of room and to therapy room for group therapy
--- NOTE | 2021-09-01 11:37 | NUR ---
returned from group therapy and resting in bed, Dr Diaz in to see patient
--- NOTE | 2021-09-01 14:23 | NUR ---
physical therapy in to work with patient
--- NOTE | 2021-09-01 15:03 | NUR ---
resting in bed visiting with her
--- NOTE | 2021-09-01 16:04 | NUR ---
family from [place] in to visit for a short period of time
--- NOTE | 2021-09-01 17:10 | NUR ---
had a nice visit with her family, denies needs
[2021-09-01 17:30] VITALS: BP 152/66; PULSE 80; TEMP 97.8
--- NOTE | 2021-09-01 21:00 | NUR ---
PT SITTING IN RECLINER. 2:1 ASSIST TO STAND. PT'S LEGS GO WEAK. CHANGED INTO NIGHT CLOTHES. ASSIST TO BED. CRUSHED CALCIUM PILL & PUT IT IN APPLESAUCE TO PREVENT CHOKING. OTHER PILLS SWALLOWED EASILY. CALL LIGHT IN REACH. BED ALARM SET.
[2021-09-02 05:35] VITALS: BP 142/66; PULSE 70; TEMP 98.2
--- NOTE | 2021-09-02 05:56 | NUR ---
PT HAS SLEPT WELL THIS SHIFT. NO DISTRESS.
--- NOTE | 2021-09-02 08:11 | NUR ---
Shift report received from retail shift leader RN. Pt. is resting supine in bed. She is feeling nervous about a scheduled MRI this morning. Pt. assisted to wheelchair at her request for morning hygiene. She is NPO this morning d/t MRI. She denies further needs at this time. Call light is within her reach
--- NOTE | 2021-09-02 09:11 | NUR ---
Pt. up in wheelchair. Has just completed a shower with OT. Dressing changed to anterior neck. Steri strips intact with dried drainage noted. 2x2 and hypofix tape applied over neck incision. [place] collar replaced after dsg. change. Pt. denies pain or discomfort. Denies further needs at this time. Call light is within her reach
[2021-09-02 17:52] VITALS: BP 110/59; PULSE 71; TEMP 97.7
[2021-09-03 05:47] VITALS: BP 142/68; PULSE 73; TEMP 97.5
--- NOTE | 2021-09-03 07:07 | NUR ---
Shift report received from mine shifter RN. Pt. awake and assisted with dressing and transfer to wheelchair for morning hygiene. She plans to watch [facility] graduation today. She denies pain or discomfort. Ant. neck dressing CDI. [place] collar is on. Denies further needs at this time. Call light is within her reach
--- NOTE | 2021-09-03 12:27 | NUR ---
Pt. sitting in wheelchair having lunch with her . AM therapy has been completed. Dsg. to ant. neck incision is CDI. Pt. denies pain or discomfort. Denies further needs. Call light is within her reach
--- NOTE | 2021-09-03 17:17 | NUR ---
Pt sitting up in bed. here and has brought her sandwiches for dinner. Pt. denies pain at this time. She would like to try walking after dinner. Denies further needs at this time. Call light is within her reach
[2021-09-03 17:42] VITALS: BP 139/72; PULSE 73; TEMP 97.5
--- NOTE | 2021-09-03 18:24 | NUR ---
Pt. ambulated approx 10 ft with nurse and RESIDENTIAL COORDINATOR. CGA provided while using gait belt and walker. Wheelchair was on standby in case of fatigue. Pt. assisted back to bed. remains at bedside. She denies pain or discomfort. Denies further needs at this time. Call light is within her reach
[2021-09-04 06:02] VITALS: BP 115/59; PULSE 70; TEMP 97.9
--- NOTE | 2021-09-04 06:26 | NUR ---
PT TRANSFERRING TO BSC WITH WALKER AND ASSIST OF 1, REQUIRES 2 IF AMBULATING DUE TO WEAKNESS IN LEGS. NO PAIN REPORTED TONIGHT, REPORTS NO BM IN SEVERAL DAYS, COLACE GIVEN @HS, NEEDS CHANGED TO SCHEDULED INSTEAD OF PRN PER [facility], WILL HAVE DAY SHIFT RN SPEAK WITH DR. ZAMBRANO.
--- NOTE | 2021-09-04 08:00 | NUR ---
Nurse assisted the patient with gait belt and walker to [facility]. Patient A&Ox4. VSS. Denies pain and discomfort. Independent with repositioning in the wheelchair and feeds. Call light within reach
[2021-09-04 17:46] VITALS: BP 121/71; PULSE 81; TEMP 97.9
--- NOTE | 2021-09-04 18:03 | NUR ---
Patient sat up in the wheelchair for most of the day and tolerated well. Patient was able to do daily cares at the sink independently and changed her t shirt independently. Denied pain and discomfort. Dressing changed anterior neck. 1 2x2 and hypafix tape. Cervical collar placed back on. Call light within reach
[2021-09-05 06:06] VITALS: BP 125/71; PULSE 78; TEMP 97.7
--- NOTE | 2021-09-05 06:54 | NUR ---
Shift report received from nightclub manager RN. Pt. resting in bed with HOB elevated approx 30 degrees. Call light is within her reach
--- NOTE | 2021-09-05 12:16 | NUR ---
Pt. sitting in recliner and eating lunch with her . [place] collar is on. She denies pain or discomfort. Denies further needs. Call light is within her reach
--- NOTE | 2021-09-05 15:33 | NUR ---
Pt. ambulated to toilet from bed with CGA and fww. Pt. wanting to ambulate more in the hallway but does not feel like her legs are strong enough right now. Pt. assisted back to bed after toileting. Denies pain or discomfort. Denies further needs. Call light is within her reach
--- NOTE | 2021-09-05 16:06 | NUR ---
Pt. up to ambulate with nurse in hallway, approx 20 ft with CGA, gait belt/walker.
[2021-09-05 16:42] VITALS: BP 155/77; PULSE 74; TEMP 97.7
--- NOTE | 2021-09-05 18:16 | NUR ---
Pt. in wheelchair getting changed into night clothes. Non-pitting edema noted to both ankles. Discussed with pt. that feet should be elevated more often, especially when she is sitting up in the recliner. Also discussed use of ABDOUL hose during the day. Will continue to monitor
--- NOTE | 2021-09-05 21:15 | NUR ---
Patient is resting in bed, alert and oriented x 4, VSS. Uses sometimes the incentive spirometer. Assessment completed, medications provided. No other needs at this time. Call light within reach.
[2021-09-06 05:41] VITALS: BP 106/65; PULSE 76; TEMP 97.7
--- NOTE | 2021-09-06 05:51 | NUR ---
Patient has had intermitent rest. She used the comode several times. Report will be given to day RN.
--- NOTE | 2021-09-06 09:01 | NUR ---
PATIENT ALERT AND ORIENTED X3. NO NEW CONCERNS. WORKING WELL WITH THERAPY. WEARS AN ASPEN COLLAR AT ALL TIMES.
--- NOTE | 2021-09-06 15:01 | NUR ---
SW checked in with patient. Patient states that she feels emotional today. When asked why, she states that she feels like she should be making more progress and is feeling frustrated. Emotional support provided. Patient does verbalize that her is going to bring her up homemade dinner to eat together tonight.
[2021-09-06 18:00] VITALS: BP 152/83; PULSE 74; TEMP 97.8
--- NOTE | 2021-09-06 20:20 | NUR ---
Patient is resting in bed, watching TV. Alert and oriented x 4, VSS. Denies pain, continues weakness BLE. Assisted x 2 for using bed commode or restroom. Assessment completed, medications provided. No other needs at this time. Call light within reaach.
[2021-09-07 05:45] VITALS: BP 133/78; PULSE 79; TEMP 97.6
--- NOTE | 2021-09-07 06:05 | NUR ---
Patient has had a calm night. A couple of times she used the commode. Report will be given to day RN.
--- NOTE | 2021-09-07 07:14 | NUR ---
Shift report received from scientific specialist RN. Pt. awake and lying supine in bed. [place] collar is on. Call light is within her reach
--- NOTE | 2021-09-07 15:29 | NUR ---
Pt. assisted to wheelchair then to toilet with gait belt and walker. CGA provided. Pt. wanting to sit up in wheelchair for awhile. Dressing change completed to anterior neck incision. Dry drainage noted. Steristrips remain and are intact. [place] collar replaced after dsg change completed. Pt. denies pain or discomfort. Denies further needs. Call light is within her reach
[2021-09-07 16:41] VITALS: BP 148/84; PULSE 78; TEMP 97.6
[2021-09-08 06:38] VITALS: BP 127/70; PULSE 70; TEMP 97.7
--- NOTE | 2021-09-08 07:13 | NUR ---
Shift report received from brick chimney supervisor RN. Pt awake. Assisted to toilet - CGA provided while using gait belt and walker.
--- NOTE | 2021-09-08 15:32 | NUR ---
SW provided and reviewed the team conference notes to the patient. Patient verbalized her understanding and questions answered. Attempt made to contact the patient's Kaden to set up training in the morning with the patient. Message left and will attempt again.
--- NOTE | 2021-09-08 15:42 | NUR ---
Pt. sitting wheelchair, has a visitor in her room. Pt. denies pain or discomfort. Denies further needs. Call light is within her reach
[2021-09-08 17:21] VITALS: BP 156/88; PULSE 72; TEMP 97.6
--- NOTE | 2021-09-08 20:19 | NUR ---
PT SITTING UP IN WC. ADMITS TO NUMBNESS IN HANDS AND BLE. WEARING [place] COLLAR AT ALL TIMES. DENIES PAIN. CALL LIGHT IN REACH.
[2021-09-08 21:11] VITALS: BP 145/68; PULSE 79; TEMP 98
--- NOTE | 2021-09-08 21:11 | NUR ---
OPERATIONS ASSISTANT ASSISTING PT TO BR. RETURNING TO . HAD SLOW DECENT TO FLOOR. LEGS WEAK. NO INJURIES. SEE VS. PT DENIES INJURY.
[2021-09-09 05:42] VITALS: BP 120/69; PULSE 83; TEMP 97.6
--- NOTE | 2021-09-09 05:55 | NUR ---
2:1 ASSIST TO BSC. VOIDED. DENIES PAIN. ASSISTED BACK TO BED. NO NEEDS AT THIS TIME.
--- NOTE | 2021-09-09 06:36 | NUR ---
shift report received from YESSICA Mansfield
--- NOTE | 2021-09-09 07:20 | NUR ---
resting in bed, is tearful as she is scheduled to go home on Sunday of next week and doesn't feel like she is doing very well, she doesn't feel like her legs are as strong as they have been, has strong flexion to feet but unable to extend as strongly, full assessment completed, see interventions for further info
--- NOTE | 2021-09-09 08:30 | NUR ---
occupational therapy in to work with patient, her is here and will provide education to him on how to care fo her
--- NOTE | 2021-09-09 09:32 | NUR ---
dressing to neck removed, incision with steristrips and is CD&I, Dr Diaz in and assessed incision, will leave open to air at this time, occupational therapy working with patient, brace repapplied
--- NOTE | 2021-09-09 09:36 | NUR ---
ambulating in [place] with physical therapy
--- NOTE | 2021-09-09 10:23 | NUR ---
returned to room from physical therapy and remains up in WC
--- NOTE | 2021-09-09 11:50 | NUR ---
remains up in WC, waiting for luncb
--- NOTE | 2021-09-09 12:40 | NUR ---
remains up in WC finishing lunch, denies needs
--- NOTE | 2021-09-09 13:18 | NUR ---
physical therapy in to work with patient
--- NOTE | 2021-09-09 15:15 | NUR ---
ELECTRICAL DISCHARGE MACHINE OPERATOR assisted her up and into WC per her request
[2021-09-09 17:41] VITALS: BP 165/89; PULSE 74; TEMP 97.7
--- NOTE | 2021-09-09 18:19 | NUR ---
shift report given to YESSICA Pardo
--- NOTE | 2021-09-09 19:27 | NUR ---
RECEIVED CHANGE OF SHIFT REPORT FROM DAY SHIFT RN. PATIENT UP IN W/C. DENIES ANY NEEDS AT THIS TIME. CALL LIGHT WITHIN REACH.
--- NOTE | 2021-09-10 03:18 | NUR ---
SLEEPING WITH EVEN RESPIRATIONS. DOES NOT WAKE WHEN DOOR TO ROOM IS OPENED BY NURSING ON ROUNDS. BED ALARMS ON, CALL LIGHT WITHIN REACH.
[2021-09-10 05:54] VITALS: BP 123/62; PULSE 70; TEMP 97.9
--- NOTE | 2021-09-10 07:17 | NUR ---
CHANGE OF SHIFT REPORT GIVEN TO DAY SHIFT ALEX JUAN.
--- NOTE | 2021-09-10 08:40 | NUR ---
PT ALERT AND ORIENTED IN ROOM. AIDED IN DRESSING. COMPLETED ASSESSMENT AND MED PASS TO BEST OF ABILITY. PT ABLE TO EXPRESS NEEDS, TRANSFERRED TO WHEEL CHAIR USING FALL PRECAUTIONS. ABLE TO INDEPENDENTLY BRUSH TEETH. PT HELPED WITH BATHROOM PRIVILEGES PRIOR TO GROUP THERAPY. NO FURTHER NEEDS EXPRESSED AT THIS TIME.
--- NOTE | 2021-09-10 09:54 | NUR ---
PT AT GROUP THERAPY, NO IS PERFORMED FOR 1000.
[2021-09-10 12:51] LABS: TSH w REFLEX 4.163 uIU/mL (0.350-4.940)
--- NOTE | 2021-09-10 13:34 | NUR ---
rounded on pt, independently using IS, no needs at this time
--- NOTE | 2021-09-10 14:30 | NUR ---
PT REPOSITIONED TO BED AFTER BATHROOM PRIVILEGES. TWO PERSON ASSIST USED, FALL PRECAUTIONS UTILIZED.
--- NOTE | 2021-09-10 16:14 | NUR ---
NOT FORMALLY TRAINED TO FILL OUT QUALITY MEASURE CODES.
--- NOTE | 2021-09-10 16:55 | NUR ---
PT CONTINUING ON PLAN OF CARE. PT ABLE TO EXPRESS NEEDS. PT VISITED THIS SHIFT. PT STRUGGLED WITH STAND-PIVOT TO COMMODE, 2 ASSIST NEEDED. PT EXPRESSING WISHES TO WALK, THIS RN DID NOT FEEL PT SAFETY MET IN ORDER TO WALK. WILL NOTIFY HOUSE WIRER TO PASS ON TO THERAPY SERVICES. CALL LIGHT WITHIN REACH.
[2021-09-10 18:00] VITALS: BP 148/90; PULSE 69; TEMP 98.7
--- NOTE | 2021-09-10 18:22 | NUR ---
NOTIFIED DR. TAVERAS OF PT VITAMIN B12 RESULT 1024, NO FURTHER ACTION RECEIVED. NOTIFIED BY SOFTWARE SALES CONSULTANT OF PT BLOOD PRESSURE ELEVATED. PT STATES PT WAS JUST ON EXERCISE MACHINE. RECHECKED MANUALLY AT THIS TIME, 148/90. RELAYED TO REAL ESTATE LEASING AGENT, WILL NEED RECHECK.
--- NOTE | 2021-09-10 18:43 | NUR ---
RECEIVED CHANGE OF SHIFT REPORT FROM DAY SHIFT RN.
[2021-09-10 20:51] VITALS: BP 140/82
--- NOTE | 2021-09-11 01:30 | NUR ---
PATIENT SLEEPS, DOES NOT WAKE WHEN NURSING ENTER ROOM ON ROUNDS. BED ALARM ON, CALL LIGHT WITHIN REACH. BREATHING NONLABORED AND EVEN.
[2021-09-11 05:40] VITALS: BP 119/60; PULSE 76; TEMP 97.5
--- NOTE | 2021-09-11 07:18 | NUR ---
CHANGE OF SHIFT REPORT GIVEN TO DAY SHIFT RNRODRIGUEZ.
[2021-09-11 17:53] VITALS: BP 142/82; PULSE 86; TEMP 97.7
--- NOTE | 2021-09-11 18:39 | NUR ---
RECEIVED CHANGE OF SHIFT REPORT FROM DAY SHIFT RN.
--- NOTE | 2021-09-11 19:44 | NUR ---
PATIENT VOICED CONCERNS THAT 'S REQUEST FOR MRI REPORTS/IMAGING WERE SENT TO [facility], DAY SHIFT NURSE FAXED FORMS TO [facility].
[2021-09-12 06:07] VITALS: BP 134/65; PULSE 71; TEMP 98
--- NOTE | 2021-09-12 07:12 | NUR ---
CHANGE OF SHIFT REPORT GIVEN TO DAY SHIFT RNCAMPBELL.
--- NOTE | 2021-09-12 07:13 | NUR ---
SHIFT REPORT RECEIVED FROM CLINICAL TRIAL SPECIALIST RN. PT. AWAKE AND LYING SUPINE IN BED. DENIES PAIN OR DISCOMFORT. DENIES FURTHER NEEDS. CALL LIGHT IS WITHIN HER REACH
--- NOTE | 2021-09-12 14:41 | NUR ---
Maintenance Team Member met with patient to check in from the weekend and discuss Home Health services in anticipation for discharge on Sunday. SW provided Medicare.gov list of agencies that serve [place] and patient states she will review it tonight with her . Patient needs a front wheeled walker and would like one with "skids" on the back if possible. Patient is agreeable to have FWW ordered through [facility].
[2021-09-12 17:15] VITALS: BP 175/92; PULSE 75; TEMP 97.9
[2021-09-13 05:45] VITALS: BP 120/72; PULSE 84; TEMP 97.6
--- NOTE | 2021-09-13 08:00 | NUR ---
Patient assisted to the BSC with 1xassist walker and gait belt. A&Ox4. VSS. Reports pain in RT upper thigh. No pain medication requested, brace on right leg. Call light within reach. Bed alarm on
--- NOTE | 2021-09-13 09:49 | NUR ---
Patient sitting up in bed, A&Ox4. VSS. Cervical collar on neck, Incision anterior neck CDI. Denies pain and discomfort. Call light within reach. Bed alarm on
--- NOTE | 2021-09-13 16:07 | NUR ---
Narrative Writer faxed referral and order for front wheeled walker to [facility]. Minor at [facility] advised they can deliver the walker tomorrow. TRINI followed up with patient who states she still has not made a final decision on a home health agency. TRINI advised a decision will need to be made prior to discharge and patient understands. TRINI presented and reviewed IM form with patient who verbalized understanding and provided signature. TRINI placed form in chart and provided copy to patient. Discharge is set for tomorrow.
[2021-09-13 16:41] VITALS: BP 163/98; PULSE 82; TEMP 98
--- NOTE | 2021-09-13 17:16 | NUR ---
Patient had an uneventful day. Worked with therapy and tolerated well. A&Ox4. VSS. Denies pain and discomfort. Calls for assistance with ambulation, independent with feeds. Call light within reach
--- NOTE | 2021-09-13 21:03 | NUR ---
PT IN W/C. IS ALERT AND ORIENTED X4. HAS C-COLLAR ON, STERI STRIPS TO LEFT NECK LOOSENING. REMOVED ABDOUL HOSE AND KNEE BRACES PER PT REQUEST. TAKES HS MEDS INCLUDING CALCIUM TAB CRUSHED IN APPLESAUCE. WILL CALL WHEN READY FOR BED.
[2021-09-14 05:50] VITALS: BP 143/77; PULSE 70; TEMP 97.6
--- NOTE | 2021-09-14 06:49 | NUR ---
Shift report received from date night sitter RN. Pt awake and lying supine in bed. [place] collar on. She denies pain/discomfort, denies further needs. Call light is within her reach
--- NOTE | 2021-09-14 10:49 | NUR ---
Pt. assisted to bed at her request. Pt. was able to stand with gait belt and walker and was able to pivot transfer to bed. She denies pain or discomfort at this time. Denies further needs. Call light is within her reach
[2021-09-14] MEDS ORDERED: PAMELOR 10MG10 MG PO ×2 (10:53)
[2021-09-14] MEDS ORDERED: NEURONTIN100 MG/CAP PO (10:53)
--- NOTE | 2021-09-14 14:00 | NUR ---
Pt. Health Summary, Discharge Summary, Home Meds reviewed with pt. and spouse. Discussed follow up appointments. Belongings were gathered by the pt. and spouse. They denied valuables. Pt. transported via wheelchair by nurse and seatbelted for ride home. Pt. and spouse denied questions
--- NOTE | 2021-09-14 15:40 | NUR ---
Registered Nurse Ambulatory followed up with patient who selected [facility]. SW faxed discharge orders and referral to [facility]. TRINI spoke with Jc at [facility] who received and accepted referral.
== END 2021-09-14 14:00 | disposition home health service (06) | DRG 949 ==
PROVIDERS: Physician Assistant; ADMIT Physical Medicine & Rehabilitation Sports Medicine
DX: Z48.811 Encounter for surgical aftercare following surgery on the nervous system (principal); J18.9 Pneumonia, unspecified organism; D62 Acute posthemorrhagic anemia; E87.1 Hypo-osmolality and hyponatremia; Z98.1 Arthrodesis status; R26.89 Other abnormalities of gait and mobility; R29.6 Repeated falls; E03.9 Hypothyroidism, unspecified; I10 Essential (primary) hypertension; E78.5 Hyperlipidemia, unspecified; I48.91 Unspecified atrial fibrillation; G89.29 Other chronic pain; M54.50 Low back pain, unspecified; K59.09 Other constipation; Z96.611 Presence of right artificial shoulder joint; Z95.0 Presence of cardiac pacemaker; Z73.6 Limitation of activities due to disability; Z79.01 Long term (current) use of anticoagulants; Z79.899 Other long term (current) drug therapy; Z79.891 Long term (current) use of opiate analgesic; T17.298A Other foreign object in pharynx causing other injury, initial encounter; Y92.230 Patient room in hospital as the place of occurrence of the external cause
CPT/HCPCS: 99222; 99231-AI; 99232-AI; A9284; J0692; J0696

== ENCOUNTER 2021-09-15 21:06 | Observation (INO) | payer MEDICARE, BC ==
[~2021-09-15] VITALS: Ht 160 cm; Wt 53.1 kg
[~2021-09-15 21:06] MED LIST changes: +CALCIUM WITH VIT D; +CORDARONE200 MG/TAB PO; +DULCOLAX STOOL100 MG PO; +HALLS9.1 MG PO; +NEURONTIN100 MG/CAP PO; +PAMELOR 10MG10 MG PO; +ROXICODONE 55 MG/TAB; +TIROSINT112 MC1 PO; +TYLENOL 325MG325 MG PO; +VITAMIN D31000 I1 PO; +XARELTO20 MG PO; +ZEBETA 5MG5 MG PO
[2021-09-15 22:05] LABS: BASO % 0.7 % (0.0-2.0); EOS # 0.3 K/mm3 (0.0-0.7); EOS % 5.7 % (0.0-4.0); GRAN # 4.4 K/mm3 (1.4-6.5); GRAN % 73.9 % (42.2-75.2); HEMATOCRIT 33.8 % (37.0-47.0); HEMOGLOBIN 10.9 g/dl (12.5-16.0); LYMPH # 0.8 K/mm3 (1.2-3.4); LYMPH % 13.2 % (20.0-51.0); MEAN CELL VOLUME 81 fl (80.0-100.0); MEAN CORPUSCULAR HEMOGLOBIN 26 pg (27-31); MEAN CORPUSCULAR HGB CONC 32 g/dl (33.0-37.0); MEAN PLATELET VOLUME 9.5 fl (7.4-10.4); MONO # 0.4 K/mm3 (0.1-0.6); MONO % 6.2 % (1.7-9.3); PLATELET COUNT 187 K/mm3 (130-400); RED BLOOD COUNT 4.16 M/mm3 (4.10-5.30); REDCELL DISTRIBUTION WIDTH-CV 15.4 % (11.5-14.5)
[2021-09-15 22:06] LABS: ALANINE AMINOTRANSFERASE 52 U/L (0-55); ALBUMIN 2.9 gm/dL (3.4-4.8); ALKALINE PHOSPHATASE 81 U/L (40-150); ANION GAP 13 mmol/L (7-16); AST,SGOT 55 U/L (5-34); BILIRUBIN,TOTAL 0.5 mg/dL (0.2-1.2); BLOOD UREA NITROGEN 15 mg/dL (10-20); CALCIUM 8.5 mg/dL (8.4-10.2); CARBON DIOXIDE 24 mmol/L (23-31); CHLORIDE 99 mmol/L (98-107); CREATININE, serum 1.16 mg/dL (0.57-1.11); GLUCOSE 144 mg/dL (70-99); POTASSIUM 3.7 mmol/L (3.5-4.5); SODIUM 136 mmol/L (136-145); TOTAL PROTEIN 6.3 gm/dL (6.2-8.1)
[2021-09-15 22:13] LABS: TROPONIN-I < 0.010 ng/mL (0.00-0.033)
[2021-09-15 22:26] VITALS: BP 99/52; PULSE 69
[2021-09-16 01:26] VITALS: BP 142/75; PULSE 72; TEMP 97.9
--- NOTE | 2021-09-16 01:45 | NUR ---
Admitted from medical floor from ER, DX Bilateral leg weakness, syncope, VSS, Tele on- paced, Denies pain at this time, no SOB, legs weak, right foot cool to touch- put socks on -did warm up some, checked pedal pulses with doppler and strong DP pulses bilaterally, has 2 bruised toes right foot- states its from her walker, also bottom is red- no breakdown, has anterior neck incision, steri strips intact, has c-collar on-- alert/oriented, does not want any snacks at this time, ice water given,, Up to BSC with 2 assist- able to pivot but legs very weak.
[2021-09-16 04:17] VITALS: BP 158/74; PULSE 70; TEMP 97.8
--- NOTE | 2021-09-16 05:05 | NUR ---
Has been sleeping well, no requests, VSS
[2021-09-16 07:20] VITALS: BP 126/68; PULSE 73; TEMP 97.8
--- NOTE | 2021-09-16 08:44 | NUR ---
PATIENT ALERT AND ORIENTED, NO COMPLAINTS OF PAIN. STATES, TINGLING AND NUMBNESS IN BILATERAL LOWER EXTREMITIES. MUSCLE STRENGTH IN [place]/LE 4-5. SOME NOTED WEAKNESS IN BED AGAINST RESISTENCE. C-COLLAR IN PLACE, STERI-STRIPS ON INSCISION INTACT. HEELS, SPECIFICALLY LEFT HEEL, SOFT/BOGGY AND REDDENED. WILL PLACE HEEL PROTECTORS AND FLOAT HEELS WHILE IN BED. IV IN LAC, LEAKING AND NON-FLUSHABLE. REMOVED ON ASSESSMENT. PATIENT APPREHENSIVE ON REPLACING, HOWEVER ON TELE-PACED. WILL ASK PROVIDER IF NEEDED OR IF CAN HOLD REPLACING FOR TIME BEING.
[2021-09-16 11:35] VITALS: BP 144/40; PULSE 73; TEMP 98.3
--- NOTE | 2021-09-16 14:26 | NUR ---
SW met with the patient to discuss discharge and address re-admit. The patient discharged from our [facility]patient [facility] on 09/14 and returned back home with her and home health services for assisted/PT/OT. She states that things were going well, but then she attempted to use their brand new built in tub and shower yesterday and she could not get out of it. She had a syncopal episode and her could not get her out, so he called 911. The patient lives in [place] with her , Kaden (ph#[phone]). She reports needing help with ADLs and has a cane and walker. Her has been assisting her with her ADLs. She states that [facility] was able to visit her yesterday. The patient's PCP is Dr. Maximus Cross and she receives her medications from [facility]. The patient does not have a DPOA-HC, but she states that she does have one completed and that she designated her . PT is recommending home with home health. OT is recommending home health vs SNF. SW discussed these options with the patient. The patient states that she is really not sure what to do and that she would need to speak to her . The patient is observation status and may be able to discharge tomorrow. TRINI contacted the patient's , Kaden, to review the above and therapy's recommendation. Kaden states that he is open to doing whatever is being recommended. He states that he would be open to looking at SNF at 1) [facility] 2) [facility], but that the patient has an appointment with the neurosurgeon at [facility] on Sunday and it is very important that the patient go to this appointment. She states that the surgeon will be deciding if the patient can remove her neck collar and looking at her L4, L5 vertebrae. He states that he just wants to make sure that she can go to this appointment if she goes to SNF. He states that he can and would prefer to transport the patient, if the facility cannot. He would like to speak to the patient about going to a SNF and respect her decision. TRINI contacted and faxed a referral to [facility] and [facility]. SW notified the facilities that the patient would tentatively be able to discharge tomorrow. Awaiting screens. TRINI faxed updates to [facility].
[2021-09-16 15:04] VITALS: BP 156/80; PULSE 70; TEMP 97.8
--- NOTE | 2021-09-16 15:48 | NUR ---
Jillian, at [facility], reports that with the patient's acute neuro needs, their clinical team does not feel comfortable taking the until after she has had her appointment with the neurosurgeon. They would really like to have the patient and can look at taking the patient after her appointment and getting neuro's recommendations. TRINI has still not heard back from [facility]. The PA was notified on the above. She is going to talk to the hospitalist about possible transfer to a neurosurgeon. TRINI contacted and updated the patient's , Kaden, on the above. Kaden and the patient are unsure about [facility] if they are able to accept. He states that they do not know anything about the facility. TRINI asked Silvestre to give the patient's a call. Kaden states that he may just struggle with the patient at home and resume home health services, until her appointment on Sunday. *Discharge plan: SNF vs home with and home health*
--- NOTE | 2021-09-16 18:21 | NUR ---
DURING PATIENT ROUNDING TODAY, WHILE IN CARE OF [facility], PATIENT HAD CONTROL SLIDE TO FLOOR. DID NOT BUMP HEAD, AND WAS IMMEDIATELY ATTENDED TO BY AUTHOR AND PROVIDER PA. PARKER HERNANDEZ. NO NEW ORDERS GIVEN. VERONIKA HERNANDEZ VERBALLY CONFIRMED NO NEED TO DO CT/XRAY OR POST FALL VITALS. PATIENT HAD NO SKIN TEARS, OR OTHER ADVERSE AFFECTS AND WAS LIFTED WITH TWO ASSIST AND PLACED BACK INTO BED. WILL CONTINUE TO MONITOR PATIENT STATUS.
--- NOTE | 2021-09-16 18:35 | NUR ---
PATIENT HAD WITNESSED/ASSISTED GUIDE TO FLOOR WITH ELECTROCARDIOGRAPHIC TECHNICIAN TODAY. DID NOT LOSE CONCIOUSNESS. IMMEDIATELY EVALUATED BY PROVIDER, NO ORDERS PER FALL PROTOCOL, DEEMED UNNECESSARY. PATIENT RECOMMENDED FOR SNF/REHAB. VERY WEAK, 2 PERSON STAND PIVOT WITH GAIT BELT. FLUIDS STARTED. CTA PERFORMED- CLEAR. NO OTHER SIGNIFICANT EVENTS THIS SHIFT.
[2021-09-16 19:44] VITALS: BP 147/73; PULSE 73; TEMP 97.9
--- NOTE | 2021-09-16 22:45 | NUR ---
Pt alert and oriented this evening, resting quietly. Pt denies pain. Cervical collar remains on and in place. Incision site on the front of the neck is clean/dry. Steri strips in place. No edema/redness/drainage noted. Pt denies difficulty breathing or SOB. Able to ambulate to [facility] with 2 assist. Denies dizziness/lightheadedness/nausea at this time. Shift assessment performed. Medications administered per orders and education provided. Pt tolerated medications well with water. Box Tender equal. Heels were a little reddened so boots were applied to elevated the heels. No BLE edema noted. No significant skin issues noted. NS running at 75 into the LFA. Lung sounds are clear. VS stable. Afebrile. Telemetry remains on. Pt resting quietly and reports no questions at this time, will continue to monitor.
[2021-09-17 00:09] VITALS: BP 128/61; PULSE 70; TEMP 98.4
[2021-09-17 04:11] VITALS: BP 116/61; PULSE 62; TEMP 98.5
--- NOTE | 2021-09-17 06:14 | NUR ---
No adverse events overnight. Pt denies pain. Alert and oriented. Cervical collar in place. Pt is still very weak in the BLE. 2 assist to bedside commode. Pt cannot hold herself up for long or at all without the knees buckling. VS remain stable. Fluids continuing. Adequate output overnight. Completed the pacemaker interrogation this morning. Pt does not report any questions, will continue to monitor.
[2021-09-17 06:54] LABS: BASO % 0.8 % (0.0-2.0); EOS # 0.4 K/mm3 (0.0-0.7); EOS % 7.8 % (0.0-4.0); GRAN # 3.4 K/mm3 (1.4-6.5); GRAN % 67.9 % (42.2-75.2); HEMOGLOBIN 10.2 g/dl (12.5-16.0); LYMPH # 0.8 K/mm3 (1.2-3.4); LYMPH % 16.5 % (20.0-51.0); MEAN CELL VOLUME 83 fl (80.0-100.0); MEAN CORPUSCULAR HEMOGLOBIN 26 pg (27-31); MEAN CORPUSCULAR HGB CONC 32 g/dl (33.0-37.0); MEAN PLATELET VOLUME 9.3 fl (7.4-10.4); MONO # 0.3 K/mm3 (0.1-0.6); MONO % 6.6 % (1.7-9.3); PLATELET COUNT 181 K/mm3 (130-400); RED BLOOD COUNT 3.89 M/mm3 (4.10-5.30); REDCELL DISTRIBUTION WIDTH-CV 15.7 % (11.5-14.5)
[2021-09-17 06:59] LABS: HEMATOCRIT 32.4 % (37.0-47.0)
[2021-09-17 07:11] LABS: CALCIUM 8.3 mg/dL (8.4-10.2); CREATININE, serum 0.72 mg/dL (0.57-1.11); POTASSIUM 3.5 mmol/L (3.5-4.5)
[2021-09-17 07:25] VITALS: BP 129/74; PULSE 85; TEMP 97.7
--- NOTE | 2021-09-17 07:49 | NUR ---
Pt rang call light first thing and was stating she was ready to get in to the chair so that she can get ready. At that time reminded pt that she is not on inpatient rehab. She is hooked up to IV fluids and has telemetry on. Pt was upset as she was planning on having mobility around her room as she was on rehab. Got pt in to a wheelchair and then situated a bag next to her and the sink. Shortly after, pt rang again asking to get dressed. Again reminded her that I can assist her with that, but that she will not have the pocket to hold telemetry and that she is still hooked up to iv fluids. Pt started to get disgusted and then asked about putting pants on. Went to assist her, but pt could not stand up at all on her own and I needed a 2nd person to help. Pt again asked to have her gown untied, asked her what she was needing and again asked about putting a shirt on. Pt was very forgetful and kept having to remind her of the telemetry and iv fluids.
--- NOTE | 2021-09-17 09:30 | NUR ---
Pt upset that she is observation status because she almost fell. He also then stated that she should be inpatient because we have her on a special diet. Educated that she is on a heart healthy diet and still does not qualify for inpatient stay. When I discussed her getting more assistance he stated that she is an appointment with neurosurgeon Sunday and then hopes for her to go to [facility]. He stated that he has everything he needs at home to take care of her until Sunday and feels okay taking care of her at home until then.
[2021-09-17] MEDS ORDERED: PAMELOR 10MG10 MG PO (10:43)
--- NOTE | 2021-09-17 11:20 | NUR ---
Reviewed discharge instructions with pt and her . Both verbalized understanding. Follow up appointments already made. They are aware of the medication changes. INT removed from left forearm and notified telemetry pt is discharging. Pt getting dressed at this time
--- NOTE | 2021-09-17 11:51 | NUR ---
Initial visit attempt; Patient indisposed, Manufacturing Specialist left card letting patient know of the availability of spiritual care at our hospital.
--- NOTE | 2021-09-20 08:37 | NUR ---
The patient discharged back home with her on Sunday, 09/17. TRINI notified Era at [facility] today of the patient discharging on Sunday. TRINI faxed her discharge orders. No additional needs at this time.
== END 2021-09-17 11:54 | disposition home health service (06) ==
LOC: COL.ER 21:06 → MEDICAL 23:17
PROVIDERS: Emergency Medicine Emergency Medical Services; Physician Assistant; ADMIT Internal Medicine
DX: R55 Syncope and collapse (principal); G95.89 Other specified diseases of spinal cord; I48.91 Unspecified atrial fibrillation; E03.9 Hypothyroidism, unspecified; E78.5 Hyperlipidemia, unspecified; M48.02 Spinal stenosis, cervical region; I10 Essential (primary) hypertension; I49.5 Sick sinus syndrome; Z95.0 Presence of cardiac pacemaker; Z79.899 Other long term (current) drug therapy; Z79.01 Long term (current) use of anticoagulants; Z79.890 Hormone replacement therapy
CPT/HCPCS: 99233-AI; G0378; J7030; Q9967

== ENCOUNTER 2021-09-25 22:09 | Emergency (ER) | payer MEDICARE, BC ==
[~2021-09-25] VITALS: Ht 162.6 cm; Wt 56.8 kg
[2021-09-25 22:44] LABS: BASO # 0.1 K/mm3 (0.0-0.2); BASO % 0.5 % (0.0-2.0); EOS # 0.2 K/mm3 (0.0-0.7); EOS % 1.6 % (0.0-4.0); GRAN # 10.3 K/mm3 (1.4-6.5); LYMPH # 0.8 K/mm3 (1.2-3.4); LYMPH % 6.7 % (20.0-51.0); MEAN CELL VOLUME 83 fl (80.0-100.0); MEAN CORPUSCULAR HGB CONC 32 g/dl (33.0-37.0); MEAN PLATELET VOLUME 9.2 fl (7.4-10.4); MONO # 0.6 K/mm3 (0.1-0.6); MONO % 4.6 % (1.7-9.3); PLATELET COUNT 225 K/mm3 (130-400); RED BLOOD COUNT 3.59 M/mm3 (4.10-5.30); REDCELL DISTRIBUTION WIDTH-CV 15.9 % (11.5-14.5)
[2021-09-25 22:54] LABS: HEMATOCRIT 29.6 % (37.0-47.0); HEMOGLOBIN 9.5 g/dl (12.5-16.0); MEAN CORPUSCULAR HEMOGLOBIN 26 pg (27-31)
[2021-09-25 23:00] LABS: ALBUMIN 2.6 gm/dL (3.4-4.8); BILIRUBIN,TOTAL 0.6 mg/dL (0.2-1.2); CALCIUM 8.4 mg/dL (8.4-10.2); CREATININE, serum 1.15 mg/dL (0.57-1.11); POTASSIUM 3.9 mmol/L (3.5-4.5); TOTAL PROTEIN 5.9 gm/dL (6.2-8.1)
[2021-09-25 23:06] LABS: TROPONIN-I 0.013 ng/mL (0.00-0.033)
[2021-09-25 23:19] LABS: COLLECTION METHOD CATHETER
[2021-09-25 23:28] LABS: MUCOUS Present (NOT PRESENT); PH 9 (5-8); URINE APPEARANCE Cloudy (CLEAR/HAZY); URINE BACTERIA Rare /hpf (NONE SEEN); URINE BILIRUBIN Negative (NEGATIVE); URINE BLOOD Negative (NEGATIVE); URINE COLOR Yellow (YELLOW); URINE GLUCOSE 1+ (NEGATIVE); URINE KETONE Negative (NEGATIVE); URINE LEUKOCYTE ESTERASE Negative (NEGATIVE); URINE NITRATE Negative (NEGATIVE); URINE PROTEIN(semi-quant) 2+ (NEGATIVE); URINE UROBILINOGEN Negative (NEGATIVE)
[2021-09-26 00:52] LABS: HEMATOCRIT 24.5 % (37.0-47.0); HEMOGLOBIN 7.9 g/dl (12.5-16.0); MEAN CELL VOLUME 82 fl (80.0-100.0); MEAN CORPUSCULAR HEMOGLOBIN 27 pg (27-31); MEAN CORPUSCULAR HGB CONC 32 g/dl (33.0-37.0); MEAN PLATELET VOLUME 9.3 fl (7.4-10.4); PLATELET COUNT 178 K/mm3 (130-400); RED BLOOD COUNT 2.98 M/mm3 (4.10-5.30)
[2021-09-26 01:46] VITALS: BP 136/71; PULSE 70; TEMP 97.6
[2021-09-26 01:56] VITALS: BP 141/75; PULSE 70; TEMP 97
[2021-09-26 02:01] VITALS: BP 152/78; PULSE 70; TEMP 97.8
[2021-09-26 02:06] VITALS: BP 146/77; PULSE 71; TEMP 97
[2021-09-26 02:20] VITALS: BP 146/77; PULSE 70
== END 2021-09-26 02:20 | disposition short-term general hospital (02) ==
LOC: COL.ER 22:09
PROVIDERS: Emergency Medicine
DX: I15.8 Other secondary hypertension (principal); R58 Hemorrhage, not elsewhere classified; R10.84 Generalized abdominal pain; Z20.822 Contact with and (suspected) exposure to COVID-19
CPT/HCPCS: J2543; J3370; J7050; J7120; J7168; P9016; Q9967

== ENCOUNTER 2021-11-16 06:56 | Outpatient (CLI) | payer MEDICARE, BC ==
[~2021-11-16] VITALS: Ht 162.6 cm; Wt 49.3 kg
[2021-11-16] VITALS (9 sets, daily range): BP systolic 128–169; BP diastolic 79–96; PULSE 69–70; TEMP 49.3
[2021-11-16] MEDS ORDERED: LYRICA 25MG CAP25 MG PO ×2 (07:46→07:47)
[2021-11-16] MEDS ORDERED: XANAX .25M0.25 MG/TA PO (07:48)
[2021-11-16] MEDS ORDERED: PROTONIX 40MG T40 MG PO (07:53)
[2021-11-16 09:34] LABS: CSF MONONUCLEAR 67 % (70-100); CSF POLYMORPHONUCLEAR 33 % (0-6); CSF RBC 2000 /mm3 (0-0)
[2021-11-16 09:43] LABS: CSF APPEARANCE CLEAR; CSF COLOR PINK
[2021-11-16 09:44] LABS: GLUCOSE,CSF 55 mg/dL (40-70); TOTAL PROTEIN,CSF 82 mg/dL (15-45)
--- NOTE | 2021-11-16 10:35 | NUR ---
Discharge education given to pt, pt verbalizes understanding. Pt discharged via wheelchair to exit. Discharge education given to per pt request. Pt also has printed discharge education for SNF nurse.
[2021-11-18 14:23] LABS: ALBUMIN CSF 48.1 mg/dL (<=27.0); ALBUMUN SERUM 3400 mg/dL (())
[2021-11-18 14:27] LABS: IGG,SERUM 855 mg/dL (()); IGG/ALBUMIN SERUM 0.25 (<=0.40)
[2021-11-18 15:03] LABS: CSF,IGG 6.5 mg/dL (<=8.1); CSF-IGG INDEX 0.56 (<=0.85)
[2021-11-18 15:04] LABS: CSF IGG/ALBUMIN 0.14 (<=0.21); CSF OLIG BD INTERPRETATION 1 bands (<2); CSF SYNTHESIS RATE 4.83 mg/24 h (<=12); SE OLIGOCLONAL BANDING 5 bands (())
[2021-11-28] MEDS ORDERED: TYLENOL SU650 MG/SUP RC (12:16)
[2021-11-28] MEDS ORDERED: ZEBETA 5MG5 MG PO (12:17)
[2021-11-28] MEDS ORDERED: DULCOLAX S10 MG/SUPP RC (12:17)
[2021-11-28] MEDS ORDERED: ATHLETE'S FOOT1% TP (12:18)
[2021-11-28] MEDS ORDERED: IMODIUM 2MG CAPS2 MG PO (12:19)
[2021-11-28] MEDS ORDERED: DEBROX OT (12:19)
[2021-11-28] MEDS ORDERED: LEVOXYL0.112 MG PO (12:20)
[2021-11-28] MEDS ORDERED: LYRICA 25MG CAP25 MG PO (12:20)
[2021-11-28] MEDS ORDERED: GOOD NEIGH1200 MG/15 PO (12:23)
[2021-11-28] MEDS ORDERED: MIRALAX PA17 GM/Dose PO (12:23)
[2021-11-28] MEDS ORDERED: MYLANTA 150 ML150 M1 PO (12:23)
[2021-11-28] MEDS ORDERED: PROTONIX 40MG T40 MG PO (12:24)
[2021-11-28] MEDS ORDERED: TYLENOL 325MG325 MG PO (12:26)
== END 2021-11-16 10:35 | disposition home or self-care (01) ==
LOC: COL.RAD 06:56
PROVIDERS: Psychiatry & Neurology Neurology
DX: G61.81 Chronic inflammatory demyelinating polyneuritis (principal)

== ENCOUNTER 2021-12-02 08:30 | Outpatient (RCR) ==
[2021-11-28] VITALS (7 sets, daily range): BP systolic 114–143; BP diastolic 48–80; PULSE 69–76; TEMP 98.3
--- NOTE | 2021-11-28 14:23 | NUR ---
Pt assisted out by wheelchair to meet [facility] staff. Nurse communication form completed and sent with pt. IV padded with 2x2s and secured with coban for use again tomorrow. Pt has tolerated crackers and soda without issue.
[2021-11-29] VITALS (7 sets, daily range): BP systolic 103–137; BP diastolic 60–86; PULSE 69–82; TEMP 97.4–97.6
--- NOTE | 2021-11-29 13:20 | NUR ---
Pt slept through much of today's IGG infusion, stating she did not sleep well last night. She woke easily each time staff entered room. Heels were floated for comfort. Pt assisted up to bedside commode x1 assist with walker prior to discharge. She remained free of complaints through infusion and prior to discharge. IV site wrapped and padded with gauze and coban for use again tomorrow. Pt was assisted out to ED entrance to meet [facility] transport staff.
[2021-11-30] VITALS (8 sets, daily range): BP systolic 120–147; BP diastolic 69–84; PULSE 70–71; TEMP 97.7
[2021-12-01 11:05] VITALS: BP 146/81; PULSE 70; TEMP 97.8
[2021-12-01 11:30] VITALS: BP 146/81; PULSE 70
[2021-12-01 12:00] VITALS: BP 164/87; PULSE 70
[2021-12-01 12:30] VITALS: BP 138/88; PULSE 70
[2021-12-01 13:00] VITALS: BP 142/82; PULSE 70
[2021-12-01 13:30] VITALS: BP 155/89; PULSE 70
--- NOTE | 2021-12-01 15:40 | NUR ---
Pt tolerated infusion with no problem today, spent much of the time napping. Before end of infusion, pt up to commode with assist x 1. pt used walker and I assisted with gait belt. IV to left forearm wrapped and left in place for infusion tomorrow. Redness to left hand and wrist has resolved for the most part. no residual pain or other sx except pt's baseline tingling is present to this extremity. pt assisted to exit in a wheelchair.
[~2021-12-02] VITALS: Ht 162.6 cm; Wt 48.9 kg
[2021-12-02] VITALS (8 sets, daily range): BP systolic 129–168; BP diastolic 72–99; PULSE 70–80; TEMP 98.2
[~2021-12-02 08:30] MED LIST changes: +ATHLETE'S FOOT1% TP; +DEBROX OT; +DULCOLAX S10 MG/SUPP RC; +GOOD NEIGH1200 MG/15 PO; +IMODIUM 2MG CAPS2 MG PO; +LEVOXYL0.112 MG PO; +LYRICA 25MG CAP25 MG PO; +MIRALAX PA17 GM/Dose PO; +MYLANTA 150 ML150 M1 PO; +PROTONIX 40MG T40 MG PO; +TYLENOL SU650 MG/SUP RC; +XANAX .25M0.25 MG/TA PO
--- NOTE | 2021-12-02 12:10 | NUR ---
IV site wrapped with coban. Pt assisted out by wheelchair to meet [facility] transport staff, she will go directly to Dr Walker's office for previously scheduled appt. Nurse communication form completed and sent with pt, as well as next appt time and date.
[2021-12-03] MEDS ORDERED: LYRICA 100MG C100 M1 PO (21:52)
[2021-12-03] MEDS ORDERED: IVIG IV (22:52)
== END 2021-12-02 12:10 ==
LOC: EUO 08:30
DX: G61.81 Chronic inflammatory demyelinating polyneuritis (principal)
CPT/HCPCS: J1200; J1569; J2930

== ENCOUNTER 2021-12-03 19:29 | Observation (INO) | payer MEDICARE, BC ==
[~2021-12-03] VITALS: Ht 162.6 cm; Wt 52.6 kg
[2021-12-03 20:27] LABS: BASO % 0.2 % (0.0-2.0); EOS % 0.4 % (0.0-4.0); GRAN # 9.1 K/mm3 (1.4-6.5); GRAN % 87.4 % (42.2-75.2); HEMATOCRIT 41.8 % (37.0-47.0); HEMOGLOBIN 12.9 g/dl (12.5-16.0); LYMPH # 0.7 K/mm3 (1.2-3.4); LYMPH % 6.3 % (20.0-51.0); MEAN CELL VOLUME 90 fl (80.0-100.0); MEAN CORPUSCULAR HEMOGLOBIN 28 pg (27-31); MEAN CORPUSCULAR HGB CONC 31 g/dl (33.0-37.0); MEAN PLATELET VOLUME 9.5 fl (7.4-10.4); MONO # 0.6 K/mm3 (0.1-0.6); MONO % 5.4 % (1.7-9.3); PLATELET COUNT 147 K/mm3 (130-400); RED BLOOD COUNT 4.63 M/mm3 (4.10-5.30); REDCELL DISTRIBUTION WIDTH-CV 17.3 % (11.5-14.5)
[2021-12-03 20:44] LABS: ALBUMIN 2.7 gm/dL (3.4-4.8); BILIRUBIN,TOTAL 0.3 mg/dL (0.2-1.2); CALCIUM 8.5 mg/dL (8.4-10.2); CREATININE, serum 0.78 mg/dL (0.57-1.11); POTASSIUM 3.9 mmol/L (3.5-4.5)
[2021-12-03 20:52] LABS: TROPONIN-I 0.058 ng/mL (0.00-0.033)
[2021-12-03] MEDS ORDERED: LYRICA 100MG C100 M1 PO (21:52)
[2021-12-03] MEDS ORDERED: IVIG IV (22:52)
[2021-12-03 23:21] LABS: COLLECTION METHOD CATHETER
[2021-12-03 23:57] LABS: PH 7.5 (5.0-8.5); URINE APPEARANCE Clear (CLEAR/HAZY); URINE COLOR Yellow (YELLOW); URINE GLUCOSE Negative (NEGATIVE); URINE KETONE Negative (NEGATIVE); URINE PROTEIN(semi-quant) Negative (NEGATIVE); URINE UROBILINOGEN 0.2 E.U/dL (0.2-1.0)
[2021-12-03 23:58] LABS: SQUAMOUS EPITHELIAL 0-2 /hpf (0-10); URINE BACTERIA None Seen /hpf (NONE SEEN); URINE BLOOD Negative (NEGATIVE); URINE NITRATE Negative (NEGATIVE); URINE RBC 0-2 /hpf (0-2)
[2021-12-04] VITALS (8 sets, daily range): BP systolic 121–168; BP diastolic 60–75; PULSE 69–78; TEMP 98.2–99.2
[2021-12-04 05:56] LABS: BASO % 0.1 % (0.0-2.0); EOS # 0.2 K/mm3 (0.0-0.7); EOS % 1.8 % (0.0-4.0); GRAN # 7.6 K/mm3 (1.4-6.5); GRAN % 82.6 % (42.2-75.2); HEMATOCRIT 39.1 % (37.0-47.0); HEMOGLOBIN 12.8 g/dl (12.5-16.0); LYMPH % 10.5 % (20.0-51.0); MEAN CELL VOLUME 88 fl (80.0-100.0); MEAN CORPUSCULAR HEMOGLOBIN 29 pg (27-31); MEAN CORPUSCULAR HGB CONC 33 g/dl (33.0-37.0); MEAN PLATELET VOLUME 9.8 fl (7.4-10.4); MONO # 0.4 K/mm3 (0.1-0.6); MONO % 4.6 % (1.7-9.3); PLATELET COUNT 122 K/mm3 (130-400); RED BLOOD COUNT 4.47 M/mm3 (4.10-5.30); REDCELL DISTRIBUTION WIDTH-CV 17.4 % (11.5-14.5)
[2021-12-04 06:20] LABS: CALCIUM 8.2 mg/dL (8.4-10.2); CREATININE, serum 0.74 mg/dL (0.57-1.11); POTASSIUM 3.9 mmol/L (3.5-4.5)
--- NOTE | 2021-12-04 07:14 | NUR ---
PATIENT ARRIVED TO FLOOR APPROX 0000. PATIENT HAD NO COMPLAINTS OF PAIN AND RECEIVED NO PRN MEDICATION. PATIENT ASSISTED TO BEDSIDE COMMODE X2 ASSIST. PATIENT RECEIVED ORDERED HEAD CT AND TOLERATED WELL.
--- NOTE | 2021-12-04 15:09 | NUR ---
[employer]al [employer] Manager met with patient for intake assessment/discharge planning: Patient states she has been "in and out of hospitals all summer," and she has been at [facility] since 09/29/2021; her stay there has been recently extended through 12/15/2021. She plans to return there to continue rehab following this stay with a goal to go home "and live my real life." She states she lives at home with her spouse Kaden ; Kaden is hlepful in supporting her with IADLs, right now she does require help with bathing, but he helps her and she is able to dress herself. She utilizes a walker and a wheelchair to ambulate. Their home is accessible, and they have "lots" of friend supports and an adult son Mj who lives in [facility], who is helpful. Patient states her mood is "okay," and denies any hopelessness and/or suicidal thoughts ever, per her report. This year, they are unable to go to [place] for their annual stay from December to June due to patient's physical health. 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 She reports she does have a DPOA-HC and does not know if it is on file with EMR, though believes it may be on file at [facility]; she has appointed her spouse Kaden at her primary agent for DPOA-HC. Patient reports no further needs at this time and expresses gratitude for check-in. *Discharge plan: return to [facility] as possible*
[2021-12-05 03:40] VITALS: BP 141/69; PULSE 74; TEMP 97.6
[2021-12-05 06:19] LABS: BASO % 0.2 % (0.0-2.0); EOS # 0.3 K/mm3 (0.0-0.7); EOS % 4.5 % (0.0-4.0); GRAN # 4.3 K/mm3 (1.4-6.5); HEMATOCRIT 37.4 % (37.0-47.0); HEMOGLOBIN 12.2 g/dl (12.5-16.0); LYMPH # 0.8 K/mm3 (1.2-3.4); LYMPH % 13.5 % (20.0-51.0); MEAN CELL VOLUME 87 fl (80.0-100.0); MEAN CORPUSCULAR HEMOGLOBIN 28 pg (27-31); MEAN CORPUSCULAR HGB CONC 33 g/dl (33.0-37.0); MEAN PLATELET VOLUME 9.8 fl (7.4-10.4); MONO # 0.4 K/mm3 (0.1-0.6); MONO % 6.5 % (1.7-9.3); PLATELET COUNT 111 K/mm3 (130-400); RED BLOOD COUNT 4.29 M/mm3 (4.10-5.30); REDCELL DISTRIBUTION WIDTH-CV 17.1 % (11.5-14.5)
--- NOTE | 2021-12-05 06:33 | NUR ---
END OF SHIFT: PATIENT RESTED QUIETLY THIS SHIFT. PATIENT HAD NO COMPLAINTS OF PAIN AND RECEIVED NO PRN MEDICATIONS. PATIENT RESTED ON SIDE THIS SHIFT AND REDNESS TO BOTTOM ALMOST RESOLVED.
[2021-12-05 06:35] LABS: CALCIUM 8.2 mg/dL (8.4-10.2); CREATININE, serum 0.68 mg/dL (0.57-1.11)
[2021-12-05 08:13] VITALS: BP 141/70; PULSE 72; TEMP 98.4
--- NOTE | 2021-12-05 09:15 | NUR ---
VSS, PT A&O X4, PT ABLE TO MAKE NEEDS KNOWN, PT RESTING IN BED, DENIES PAIN, FALL PRECAUTIONS IN PLACE, CALL LIGHT IN REACH
--- NOTE | 2021-12-05 10:16 | NUR ---
Initial visit; Patient thanked Welder Boilermaker for looking in on her and offering God's blessings. Patient had no further needs to address at this time.
[2021-12-05 12:00] VITALS: BP 127/73; PULSE 84; TEMP 98.1
[2021-12-05 15:34] VITALS: BP 126/70; PULSE 82; TEMP 98
[2021-12-05] MEDS ORDERED: SYNTHROID0.1 MG/TAB PO ×3 (15:48→15:50)
--- NOTE | 2021-12-05 16:18 | NUR ---
Marking Machine Tender contacted Jillian at [facility] and faxed clinical updates. SW went to check in with patient and her , Kaden and they were both upset that patient was not being discharged today. TRINI explained that per Hospitalist, we were waiting on results from patient's procedure. Kaden stated the hospital was trying to "pad the bill". TRINI followed up with Hospitalist who spoke with Cardiology. Patient can discharge today if [facility] can accept. TRINI contacted Jillian who reviewed with her team and they can take patient today with another negative covid test. TRINI faxed discharge orders. Transport set for 1645. TRINI met with patient and she is agreeable to this plan. Covid test ordered.
--- NOTE | 2021-12-05 17:38 | NUR ---
PT DISMISSED TO [facility], REPORT CALLED, NO FURTHER CONCERNS
== END 2021-12-05 16:55 ==
LOC: COL.ER 19:29 → SURG 21:09
PROVIDERS: Emergency Medicine; Nurse Practitioner Family; ADMIT Student in an Organized Health Care Education/Training Program
DX: R55 Syncope and collapse (principal); I21.4 Non-ST elevation (NSTEMI) myocardial infarction; I10 Essential (primary) hypertension; E03.9 Hypothyroidism, unspecified; R73.9 Hyperglycemia, unspecified; R65.10 Systemic inflammatory response syndrome (SIRS) of non-infectious origin without acute organ dysfunction; G61.81 Chronic inflammatory demyelinating polyneuritis; I48.20 Chronic atrial fibrillation, unspecified; Z20.822 Contact with and (suspected) exposure to COVID-19; E78.5 Hyperlipidemia, unspecified; I49.5 Sick sinus syndrome; G90.9 Disorder of the autonomic nervous system, unspecified; M48.061 Spinal stenosis, lumbar region without neurogenic claudication; M48.02 Spinal stenosis, cervical region; Z95.0 Presence of cardiac pacemaker; Z79.899 Other long term (current) drug therapy; Z79.890 Hormone replacement therapy
CPT/HCPCS: G0378; J0692; J7030; J7040

== ENCOUNTER 2022-01-03 08:48 | Outpatient (CLI) | payer MEDICARE, BC ==
[2022-01-03] VITALS (7 sets, daily range): BP systolic 159–183; BP diastolic 86–100; PULSE 70–72; TEMP 97–98
[~2022-01-03] VITALS: Ht 162.6 cm; Wt 51.0 kg
[~2022-01-03 08:48] MED LIST changes: +GAMMAGARD10 GM IV; +LYRICA 100MG C100 M1 PO; +SYNTHROID0.1 MG/TAB PO
[2022-01-03] MEDS ORDERED: CENTRUM SILVER1 TAB (10:04)
[2022-01-03] MEDS ORDERED: OSCAL 500 TAB500 MG PO (10:05)
[2022-01-03] MEDS ORDERED: VITAMIN D3400 I1 PO (10:05)
== END 2022-01-03 13:15 | disposition home or self-care (01) ==
LOC: EUO 08:48
DX: G61.81 Chronic inflammatory demyelinating polyneuritis (principal)
CPT/HCPCS: J1200; J1459; J1569; J2930

== ENCOUNTER → 2022-01-10 | Outpatient (CLI) | payer MEDICARE, BC ==
[~2022-01-10] MED LIST changes: +CENTRUM SILVER1 TAB; +OSCAL 500 TAB500 MG PO; +VITAMIN D3400 I1 PO
== END ==
LOC: COL.VAS 09:40
DX: I73.9 Peripheral vascular disease, unspecified (principal)

== ENCOUNTER 2022-02-28 08:45 | Outpatient (CLI) | payer MEDICARE, BC ==
[~2022-02-28] VITALS: Ht 157.5 cm; Wt 48.6 kg
[2022-02-28] VITALS (10 sets, daily range): BP systolic 140–180; BP diastolic 82–99; PULSE 70–78; TEMP 97.9–98
--- NOTE | 2022-02-28 13:14 | NUR ---
IVIG infused, pt tolerated well, vital signs remained normal. Pt used commode with RN assist x2 times; PIV discontinued; called for ride.
== END 2022-02-28 13:25 | disposition home or self-care (01) ==
LOC: EUO 08:45
DX: G61.81 Chronic inflammatory demyelinating polyneuritis (principal)
CPT/HCPCS: J1200; J1569; J2930

== ENCOUNTER 2022-05-23 08:49 | Outpatient (CLI) | payer MEDICARE, BC ==
[2022-05-23] VITALS (11 sets, daily range): BP systolic 131–173; BP diastolic 65–94; PULSE 68–78; TEMP 97.9–98.4
[~2022-05-23] VITALS: Ht 162.6 cm; Wt 53.6 kg
--- NOTE | 2022-05-23 12:46 | NUR ---
Pt was assisted up to restroom in room x2 during infusion. She is able to transfer with standby assist and ambulates with wheeled walker, gait belt in place during activity. She ate crackers, peanut butter and soda, denied desire for meal tray. IV DC'd, site wrapped with coban. She exits dept at this time with .
== END 2022-05-23 12:49 ==
LOC: EUO 08:49
DX: G61.81 Chronic inflammatory demyelinating polyneuritis (principal)
CPT/HCPCS: J1200; J1569; J2930

== ENCOUNTER 2022-06-20 08:48 | Outpatient (CLI) | payer MEDICARE, BC ==
[~2022-06-20] VITALS: Ht 162.6 cm; Wt 53.4 kg
[2022-06-20 09:24] VITALS: BP 133/75; PULSE 70; TEMP 98.2
[2022-06-20 09:48] VITALS: BP 133/80; PULSE 71
[2022-06-20 12:30] VITALS: BP 172/103; PULSE 70
--- NOTE | 2022-06-20 13:00 | NUR ---
Infusion completed, IV DC'd, site wrapped with coban. BP readings discussed with pt and . Pt is assymptomatic with steady rise in BP readings today. She states she has been monitoring. She will continue to monitor readings at home and follow up with PCP. She exits dept with steady gait accompanied by .
== END 2022-06-20 13:00 | disposition home or self-care (01) ==
LOC: EUO 08:48
DX: G61.81 Chronic inflammatory demyelinating polyneuritis (principal)
CPT/HCPCS: J1200; J1569; J2930

== ENCOUNTER 2022-07-18 08:28 | Outpatient (CLI) | payer MEDICARE, BC ==
[2022-07-18] VITALS (9 sets, daily range): BP systolic 128–171; BP diastolic 61–90; PULSE 66–71; TEMP 97.8–98.1
[~2022-07-18] VITALS: Ht 162.6 cm; Wt 53.6 kg
--- NOTE | 2022-07-18 12:36 | NUR ---
Pt tolerated infusion without issue. Pt exits dept accompanied by , gait steady. IV site was wrapped with coban.
== END 2022-07-18 12:30 | disposition home or self-care (01) ==
LOC: EUO 08:28
DX: G61.81 Chronic inflammatory demyelinating polyneuritis (principal)
CPT/HCPCS: J1200; J1569; J2930

== ENCOUNTER 2022-08-15 08:46 | Outpatient (CLI) | payer MEDICARE, BC ==
[~2022-08-15] VITALS: Ht 162.6 cm; Wt 54.3 kg
[2022-08-15] VITALS (11 sets, daily range): BP systolic 145–175; BP diastolic 72–106; PULSE 69–73; TEMP 98.5
== END 2022-08-15 13:35 ==
LOC: EUO 08:46
DX: G61.81 Chronic inflammatory demyelinating polyneuritis (principal)
CPT/HCPCS: J1200; J1569; J2930

== ENCOUNTER 2023-01-23 09:46 | Outpatient (CLI) | payer MEDICARE, BC ==
[2023-01-23] VITALS (8 sets, daily range): BP systolic 120–176; BP diastolic 65–92; PULSE 70–72; TEMP 98
[~2023-01-23] VITALS: Ht 162.6 cm; Wt 51.1 kg
[2023-01-23 09:13] LABS: BASO % 0.6 % (0.0-2.0); EOS # 0.1 K/mm3 (0.0-0.7); EOS % 1.2 % (0.0-4.0); GRAN # 5.3 K/mm3 (1.4-6.5); GRAN % 79.4 % (42.2-75.2); HEMOGLOBIN 13.6 g/dl (12.5-16.0); LYMPH # 0.9 K/mm3 (1.2-3.4); LYMPH % 12.9 % (20.0-51.0); MEAN CELL VOLUME 92 fl (80.0-100.0); MEAN CORPUSCULAR HEMOGLOBIN 30 pg (27-31); MEAN CORPUSCULAR HGB CONC 33 g/dl (33.0-37.0); MONO # 0.4 K/mm3 (0.1-0.6); MONO % 5.3 % (1.7-9.3); PLATELET COUNT 219 K/mm3 (130-400); RED BLOOD COUNT 4.48 M/mm3 (4.10-5.30); REDCELL DISTRIBUTION WIDTH-CV 14.6 % (11.5-14.5)
[2023-01-23 09:25] LABS: ALBUMIN 3.7 gm/dL (3.4-4.8); BILIRUBIN,TOTAL 0.6 mg/dL (0.2-1.2); CALCIUM 9.7 mg/dL (8.4-10.2); CREATININE, serum 1.12 mg/dL (0.57-1.11); POTASSIUM 3.8 mmol/L (3.5-4.5); TOTAL PROTEIN 7.6 gm/dL (6.2-8.1)
[~2023-01-23 09:46] MED LIST changes: +COLACE 100100 MG/CAP PO
== END 2023-01-23 12:51 | disposition home or self-care (01) ==
LOC: EUO 09:46
PROVIDERS: Internal Medicine
DX: G61.81 Chronic inflammatory demyelinating polyneuritis (principal)
CPT/HCPCS: J1569

== ENCOUNTER 2023-02-13 09:22 | Outpatient (CLI) | payer MEDICARE, BC ==
[2023-02-13] VITALS (8 sets, daily range): BP systolic 138–173; BP diastolic 74–93; PULSE 69–75; TEMP 97.8
[~2023-02-13] VITALS: Ht 162.6 cm; Wt 51.3 kg
[2023-02-13 09:16] LABS: HEMATOCRIT 40.2 % (37.0-47.0); HEMOGLOBIN 13.5 g/dl (12.5-16.0); MEAN CELL VOLUME 91 fl (80.0-100.0); MEAN CORPUSCULAR HEMOGLOBIN 31 pg (27-31); MEAN CORPUSCULAR HGB CONC 34 g/dl (33.0-37.0); MEAN PLATELET VOLUME 8.9 fl (7.4-10.4); PLATELET COUNT 220 K/mm3 (130-400); RED BLOOD COUNT 4.42 M/mm3 (4.10-5.30); REDCELL DISTRIBUTION WIDTH-CV 14.6 % (11.5-14.5)
[2023-02-13] MEDS ORDERED: CITRACAL + D CA1 TAB PO (09:23)
[2023-02-13 09:39] LABS: ALBUMIN 3.5 gm/dL (3.4-4.8); BILIRUBIN,TOTAL 0.5 mg/dL (0.2-1.2); CALCIUM 9.6 mg/dL (8.4-10.2); CREATININE, serum 1.1 mg/dL (0.57-1.11); POTASSIUM 3.9 mmol/L (3.5-4.5); TOTAL PROTEIN 7.4 gm/dL (6.2-8.1)
--- NOTE | 2023-02-13 12:49 | NUR ---
Pt tolerated IGG without issue. She was assisted to restroom x2 during infusion. She was provided with diet soda, crackers and peanut butter during infusion. IV DC'd, site wrapped with coban. She and exit dept, gait steady using walker.
== END 2023-02-13 12:50 | disposition home or self-care (01) ==
LOC: EUO 09:22
PROVIDERS: Internal Medicine
DX: G61.81 Chronic inflammatory demyelinating polyneuritis (principal)
CPT/HCPCS: J1569

== ENCOUNTER 2023-05-01 09:22 | Outpatient (CLI) | payer MEDICARE, BC ==
[~2023-05-01] VITALS: Ht 162.6 cm; Wt 50.3 kg
[2023-05-01] VITALS (9 sets, daily range): BP systolic 136–175; BP diastolic 79–105; PULSE 69–73; TEMP 98.5
[2023-05-01 09:05] LABS: BASO % 0.6 % (0.0-2.0); EOS # 0.1 K/mm3 (0.0-0.7); EOS % 1.5 % (0.0-4.0); GRAN # 5.4 K/mm3 (1.4-6.5); GRAN % 75.8 % (42.2-75.2); HEMATOCRIT 41.4 % (37.0-47.0); HEMOGLOBIN 13.9 g/dl (12.5-16.0); LYMPH # 1.1 K/mm3 (1.2-3.4); LYMPH % 15.3 % (20.0-51.0); MEAN CELL VOLUME 91 fl (80.0-100.0); MEAN CORPUSCULAR HEMOGLOBIN 30 pg (27-31); MEAN CORPUSCULAR HGB CONC 34 g/dl (33.0-37.0); MEAN PLATELET VOLUME 9.3 fl (7.4-10.4); MONO # 0.5 K/mm3 (0.1-0.6); MONO % 6.4 % (1.7-9.3); PLATELET COUNT 197 K/mm3 (130-400); RED BLOOD COUNT 4.57 M/mm3 (4.10-5.30); REDCELL DISTRIBUTION WIDTH-CV 15.2 % (11.5-14.5)
[~2023-05-01 09:22] MED LIST changes: +Acetaminophen 325 MG TAB PO ONE; +BENADRYL25 M2 PO; +Immune Globulin (Gammagard) 20 G/200 ML IV SOLN IV ONE; +diphenhydrAMINE 25 MG CAP PO ONE
[2023-05-01 09:34] LABS: ALBUMIN 3.6 gm/dL (3.4-4.8); BILIRUBIN,TOTAL 0.3 mg/dL (0.2-1.2); CALCIUM 9.4 mg/dL (8.4-10.2); CREATININE, serum 1.16 mg/dL (0.57-1.11); POTASSIUM 3.8 mmol/L (3.5-4.5)
[2023-05-01] MEDS ORDERED: Immune Globulin (Gammagard) 30 G/300 ML IV SOLN IV ONE (10:15)
== END 2023-05-01 13:41 | disposition home or self-care (01) ==
LOC: EUO 09:22
PROVIDERS: Internal Medicine
DX: G61.81 Chronic inflammatory demyelinating polyneuritis (principal)
CPT/HCPCS: J1569

== ENCOUNTER 2023-05-22 09:20 | Outpatient (CLI) | payer MEDICARE, BC ==
[2023-05-22] VITALS (8 sets, daily range): BP systolic 144–173; BP diastolic 85–103; PULSE 68–80; TEMP 98.4
[2023-05-22 09:05] LABS: HEMATOCRIT 39.3 % (37.0-47.0); HEMOGLOBIN 13.1 g/dl (12.5-16.0); MEAN CELL VOLUME 92 fl (80.0-100.0); MEAN CORPUSCULAR HEMOGLOBIN 31 pg (27-31); MEAN CORPUSCULAR HGB CONC 33 g/dl (33.0-37.0); PLATELET COUNT 176 K/mm3 (130-400); RED BLOOD COUNT 4.29 M/mm3 (4.10-5.30); REDCELL DISTRIBUTION WIDTH-CV 15.3 % (11.5-14.5)
[~2023-05-22 09:20] MED LIST changes: -Immune Globulin (Gammagard) 20 G/200 ML IV SOLN IV ONE; +Immune Globulin (Gammagard) 20 G/200 ML IV SOLN IV SCH
[2023-05-22 09:28] LABS: ALBUMIN 3.2 gm/dL (3.4-4.8); BILIRUBIN,TOTAL 0.3 mg/dL (0.2-1.2); CALCIUM 8.9 mg/dL (8.4-10.2); CREATININE, serum 0.97 mg/dL (0.57-1.11); POTASSIUM 3.7 mmol/L (3.5-4.5); TOTAL PROTEIN 6.8 gm/dL (6.2-8.1)
[2023-05-22] MEDS ORDERED: Immune Globulin (Gammagard) 30 G/300 ML IV SOLN IV SCH (10:00)
--- NOTE | 2023-05-22 13:03 | NUR ---
pt tolerated infusion well and was assisted to main lobby by and used walker. vs remained within pts normal limits and pt free from acute concerns and complaints at time of discharge. IV discontinued upon discharge.
== END 2023-05-22 16:32 | disposition home or self-care (01) ==
LOC: EUO 09:20
PROVIDERS: Internal Medicine
DX: G61.81 Chronic inflammatory demyelinating polyneuritis (principal)
CPT/HCPCS: J1569

== ENCOUNTER 2023-07-31 08:46 | Outpatient (CLI) | payer MEDICARE, BC ==
[2023-07-31] VITALS (8 sets, daily range): BP systolic 136–185; BP diastolic 88–113; PULSE 68–74; TEMP 97.6
[~2023-07-31] VITALS: Ht 162.6 cm; Wt 51.0 kg
[~2023-07-31 08:46] MED LIST changes: -Acetaminophen 325 MG TAB PO ONE; -Immune Globulin (Gammagard) 20 G/200 ML IV SOLN IV SCH; -diphenhydrAMINE 25 MG CAP PO ONE
[2023-07-31 09:06] LABS: BASO % 0.4 % (0.0-2.0); EOS % 0.6 % (0.0-4.0); GRAN # 5.8 K/mm3 (1.4-6.5); GRAN % 80.8 % (42.2-75.2); HEMATOCRIT 40.1 % (37.0-47.0); HEMOGLOBIN 13.5 g/dl (12.5-16.0); LYMPH # 0.9 K/mm3 (1.2-3.4); LYMPH % 13.2 % (20.0-51.0); MEAN CELL VOLUME 90 fl (80.0-100.0); MEAN CORPUSCULAR HEMOGLOBIN 30 pg (27-31); MEAN CORPUSCULAR HGB CONC 34 g/dl (33.0-37.0); MEAN PLATELET VOLUME 9.6 fl (7.4-10.4); MONO # 0.3 K/mm3 (0.1-0.6); MONO % 4.6 % (1.7-9.3); PLATELET COUNT 194 K/mm3 (130-400); RED BLOOD COUNT 4.46 M/mm3 (4.10-5.30); REDCELL DISTRIBUTION WIDTH-CV 14.9 % (11.5-14.5)
[2023-07-31 09:28] LABS: ALBUMIN 3.1 g/dL (3.4-4.8); BILIRUBIN,TOTAL 0.3 mg/dL (0.2-1.2); CALCIUM 9.4 mg/dL (8.4-10.2); CREATININE, serum 1.08 mg/dL (0.57-1.11); POTASSIUM 3.9 mEq/L (3.5-4.5); TOTAL PROTEIN 7.7 g/dl (6.2-8.1)
[2023-07-31] MEDS ORDERED: Immune Globulin (Gammagard) 30 G/300 ML IV SOLN IV SCH (09:30)
[2023-07-31] MEDS ORDERED: Immune Globulin (Gammagard) 20 G/200 ML IV SOLN IV SCH (09:30)
[2023-07-31] MEDS ORDERED: Acetaminophen 325 MG TAB PO ONE (09:30)
[2023-07-31] MEDS ORDERED: diphenhydrAMINE 25 MG CAP PO ONE (09:30)
--- NOTE | 2023-07-31 12:41 | NUR ---
PT TOLERATES INFUSION WELL. PT AND PRIMARY CARE PROVIDER ARE AWARE OF HYPERTENSION THAT OCCURS DURING INFUSION. IV DISCONTINUED AND PT FREE FROM ACUTE CONCERNS AND COMPLAINTS AT TIME OF DISCHARGE. PT AMBULATED TO MAIN LOBBY WITH WALKER AND .
== END 2023-07-31 12:43 | disposition home or self-care (01) ==
LOC: EUO 08:46
PROVIDERS: Internal Medicine
DX: G61.81 Chronic inflammatory demyelinating polyneuritis (principal)
CPT/HCPCS: J1569

== ENCOUNTER 2024-01-29 09:01 | Outpatient (CLI) | payer MEDICARE, BC ==
[~2024-01-29] VITALS: Ht 162.6 cm; Wt 51.0 kg
[2024-01-29] VITALS (9 sets, daily range): BP systolic 151–192; BP diastolic 77–109; PULSE 69–72; TEMP 97.6
[~2024-01-29 09:01] MED LIST changes: +BACTRIM DS 8001 TAB PO; +BACTROBAN15 GM TOP
[2024-01-29] MEDS ORDERED: Immune Globulin (Gammagard) 20 G/200 ML IV SOLN IV SCH (09:30)
[2024-01-29 09:37] LABS: BASO % 0.4 % (0.0-2.0); EOS # 0.2 K/mm3 (0.0-0.7); EOS % 2.6 % (0.0-4.0); GRAN # 5.2 K/mm3 (1.4-6.5); GRAN % 76.4 % (42.2-75.2); HEMATOCRIT 40.7 % (37.0-47.0); HEMOGLOBIN 13.9 g/dl (12.5-16.0); MEAN CELL VOLUME 90 fl (80.0-100.0); MEAN CORPUSCULAR HEMOGLOBIN 31 pg (27-31); MEAN CORPUSCULAR HGB CONC 34 g/dl (33.0-37.0); MONO # 0.4 K/mm3 (0.1-0.6); MONO % 5.2 % (1.7-9.3); PLATELET COUNT 203 K/mm3 (130-400); RED BLOOD COUNT 4.51 M/mm3 (4.10-5.30); REDCELL DISTRIBUTION WIDTH-CV 16.1 % (11.5-14.5)
[2024-01-29 09:39] LABS: ALBUMIN 3.4 g/dL (3.4-4.8); BILIRUBIN,TOTAL 0.4 mg/dL (0.2-1.2); CALCIUM 9.6 mg/dL (8.4-10.2); CREATININE, serum 1.04 mg/dL (0.57-1.11); POTASSIUM 3.9 mEq/L (3.5-4.5); TOTAL PROTEIN 7.8 g/dl (6.2-8.1)
[2024-01-29] MEDS ORDERED: Immune Globulin (Gammagard) 30 G/300 ML IV SOLN IV SCH (10:30)
== END 2024-01-29 13:30 | disposition home or self-care (01) ==
LOC: EUO 09:01
PROVIDERS: Internal Medicine
DX: G61.81 Chronic inflammatory demyelinating polyneuritis (principal)
CPT/HCPCS: J1569